=== PATIENT | male | born 1955 | race African-American/Black ===

== ENCOUNTER 2016-12-26 07:55 | Day surgery (SDC) ==
[2016-12-26] MEDS: LIDOCAINE 1% 20 ML MDV ID ONE (08:45)
[2016-12-26] MEDS ORDERED: DIPRIVAN 20 ML VIAL IVP ONE (10:08)
[2016-12-26] MEDS ORDERED: VERSED ONE (10:08)
[2016-12-26 11:42] VITALS: BP 138/90; TEMP 98
--- NOTE | 2016-12-26 15:17 | OP ---
PROCEDURE: COLONOSCOPY TO THE CECUM WITH SNARE POLYPECTOMY. ENDOSCOPIST: Tracy JUAREZ M.D. INDICATION: SCREENING. NO PREVIOUS COLONOSCOPY. INSTRUMENT: [id number]. MEDICATION: PER ANESTHESIA. PROCEDURE: The patient was positioned for colonoscopy. The digital rectal exam was negative. The colonoscope was inserted through the anus and advanced to the cecum. The cecum was identified using the ileocecal valve and the appendiceal orifice as landmarks. The scope was slowly withdrawn through an adequately prepped colon. A small polyp at 60cm removed using snare cautery. A second poly at 50cm removed using snare cautery. No other abnormalities were noted. Diverticuli are seen in the left colon. Retroflex exam is notable for external hemorrhoids. The patient tolerated the procedure without immediate complication. Withdraw time 12 minutes. PLAN: 1. Suggest repeat colonoscopy in 5 years. CC: Dr. Roberto ABRAHAM
== END 2016-12-26 11:57 | disposition home or self-care (01) ==
LOC: SURG 07:55
PROVIDERS: ATTEND Internal Medicine Gastroenterology
DX: Z12.11 Encounter for screening for malignant neoplasm of colon (principal); D12.4 Benign neoplasm of descending colon; K57.30 Diverticulosis of large intestine without perforation or abscess without bleeding; K64.4 Residual hemorrhoidal skin tags

== ENCOUNTER 2017-05-03 08:25 | Outpatient (CLI) ==
--- NOTE | 2017-05-03 09:42 | US ---
EXAM: Renal ultrasound HISTORY: Decreased GFR COMPARISON: None TECHNIQUE: Sonographic evaluation of the kidneys was performed with limited Doppler evaluation. FINDINGS: The right kidney measures 10.6 x 4.4 x 3.9 cm with renal cortical thickness of 0.7 cm. Th ere is normal echogenicity and color Doppler flow. No stone or hydronephrosis is identified. The left kidney measures 9.1 x 5.1 x 4.0 cm with renal cortical thickness of 1.2 cm. There is normal echogenicity and color Doppler flow. No stone or hydronephrosis is identified. Limited evaluation of the urinary bladder demonstrates a questionable diverticulum measuring 0.7 x 0. 4 cm. IMPRESSION: 1. No sonographic abnormality of the kidneys to account for patient's symptoms. 2. Small questionable bladder diverticulum.
== END 2017-05-03 08:26 | disposition home or self-care (01) ==
LOC: RAD 08:25
PROVIDERS: ATTEND Family Medicine
DX: R94.4 Abnormal results of kidney function studies (principal)
CPT/HCPCS: 76770

== ENCOUNTER 2017-06-12 10:20 | Emergency (ER) ==
[2017-06-12 10:26] VITALS: BP 143/98; TEMP 97.4; BMI 26.3
--- NOTE | 2017-06-12 10:46 | ED.PDOC ---
General ED Provider: Dr. TALA BETANCOURT Chief Complaint: Rash Stated Complaint: RASH Time Seen by Physician: 10:20 Mode of Arrival: Walk-In Information Source: Patient Exam Limitations: No limitations Primary Care Provider: ARVIND ROBLERO Nursing and Triage Documentation Reviewed and Agree: Yes Reviewed sepsis parameters & appropriate labs ordered?: Yes (SEE PHOTOS) System Inflammatory Response Syndrome: Not Applicable Sepsis Protocol: For patient's 13 years and over: Temp is 96.8 and below OR 101 and greater Pulse >90 BPM Resp >20/minute Acutely Altered Mental Status Are patient's symptoms suggestive of a new infection, such as: -Pneumonia -Skin, Soft Tissue -Endocarditis -UTI -Bone, Joint Infection -Implantable Device -Acute Abdominal Infection -Wound Infection -Meningitis -Blood Stream Catheter Infection -Unknown System Inflammatory Response Syndrome: Not Applicable Skin Complaint Exam - Skin Rash/Itching Complaint/Exam Onset/Duration: 1 DAY Symptoms Are: Still present Initial Severity: Mild Current Severity: Mild Potential Exposures: Reports: Unknown Aggravating: Reports: None Alleviating: Reports: None Associated Signs and Symptoms: Denies: Difficulty breathing, Fever, Chills Related History: Similar episode Review of Systems - Review Of Systems Constitutional: Reports: No symptoms Eyes: Reports: No symptoms Ears, Nose, Mouth, Throat: Reports: No symptoms Respiratory: Reports: No symptoms Cardiac: Reports: No symptoms GI: Reports: No symptoms : Reports: No symptoms Musculoskeletal: Reports: No symptoms Skin: Reports: Rash Neurological: Reports: No symptoms Endocrine: Reports: No symptoms Hematologic/Lymphatic: Reports: No symptoms All Other Systems: Reviewed and Negative Past Medical History - Past Medical History Previously Healthy: Yes Endocrine: Reports: None Cardiovascular: Reports: None Respiratory: Reports: None Hematological: Reports: None Gastrointestinal: Reports: None Genitourinary: Reports: None Neuro/Psych: Reports: None Musculoskeletal: Reports: None Cancer: Reports: None - Surgical History General Surgical History: Reports: None - Family History Family History: Reports: None - Social History Smoking Status: Former smoker Hx Substance Use: No Alcohol Screening: None - Immunizations Tetanus Shot up to Date: No Physical Exam - Physical Exam Appearance: Well-appearing, No pain distress, Well-nourished Eyes: ZOE, EOMI, Conjunctiva clear ENT: Ears normal, Nose normal, Oropharynx normal Respiratory: Airway patent, Breath sounds clear, Breath sounds equal, Respirations nonlabored Cardiovascular: RRR, Pulses normal, No rub, No murmur GI/: Soft, Nontender, No masses, Bowel sounds normal, No Organomegaly Musculoskeletal: Normal strength, ROM intact, No edema, No calf tenderness Skin: Warm, Dry (PAPULAR RASH FACE ARMS , BACK ) Neurological: Sensation intact, Motor intact, Reflexes intact, Cranial nerves intact, Alert, Oriented Psychiatric: Affect appropriate, Mood appropriate Critical Care Note - Critical Care Note Total Time (mins): 0 Course - Course Vital Signs: Temp Pulse Resp BP Pulse Ox 06/12/17 10:20 97.4 F L 74 18 143/98 H 100 Departure - Departure Time of Disposition: 10:46 (SEEN AT ALL TIMES WITH NURSE HOOK) Disposition: HOME SELF-CARE Discharge Problem: Pruritic rash Instructions: Acute Rash (ED) Condition: Good Pt referred to PMD for follow-up: Yes IPMP verified?: No Additional Instructions: Please call your Family Physician as soon as possible to schedule a follow-up appointment. Allergies/Adverse Reactions: Allergies codeine Adverse Reaction (Verified 12/26/16 08:42) Home Medications: Ambulatory Orders Alprazolam [Xanax] 0.5 mg PO BID 12/26/16 Aspirin [Lo-Dose Aspirin EC] 81 mg PO DAILY 12/26/16 Clopidogrel Bisulfate [Plavix] 75 mg PO DAILY 12/26/16 Gabapentin [Neurontin] 300 mg PO TID 12/26/16 Hydrocodone Bit/Acetaminophen [[place] 7.5-325] 1 tab PO BID PRN 12/26/16 Lisinopril 1.25 mg PO BID 12/26/16 Metoprolol Tartrate [Lopressor] 12.5 mg PO DAILY 12/26/16 Pravastatin Sodium 80 mg PO DAILY 12/26/16
[2017-06-12] MEDS ORDERED: DECADRON 4 MG/ML SDV IM STA (10:47)
== END 2017-06-12 10:52 | disposition home or self-care (01) ==
LOC: ED 10:20
DX: R21 Rash and other nonspecific skin eruption (principal); L29.9 Pruritus, unspecified
CPT/HCPCS: 96372; 99282

== ENCOUNTER 2017-11-15 09:38 | Outpatient (CLI) | END 2017-11-15 09:39 | disposition home or self-care (01) | LOC: RHC-LAB 09:38 | PROVIDERS: ATTEND Emergency Medicine | DX: I25.118 Atherosclerotic heart disease of native coronary artery with other forms of angina pectoris (principal); I10 Essential (primary) hypertension; E78.5 Hyperlipidemia, unspecified; Z12.5 Encounter for screening for malignant neoplasm of prostate | CPT/HCPCS: 36415; 80053; 80061; 84443; 85025 ==

== ENCOUNTER 2017-12-04 09:47 | Observation (INO) ==
[2017-12-04 10:29] VITALS: BMI 25.8
[2017-12-04] MEDS ORDERED: ACETAMINOPHEN PO PRN (12:30)
[2017-12-04] MEDS ORDERED: HYDROCODONE BIT PO PRN (12:30)
[2017-12-04] MEDS ORDERED: NON-FORMULARY MEDICATION (Alprazolam [Xanax] 0.5 MG) PO PRN (12:30)
[2017-12-04] MEDS ORDERED: NON-FORMULARY MEDICATION (Nitroglycerin [Nitroglycerin] 0.4 MG) SL PRN (12:30)
[2017-12-04] MEDS ORDERED: TYLENOL PO PRN (12:38)
[2017-12-04] MEDS ORDERED: XANAX PO PRN (12:41)
[2017-12-04] MEDS ORDERED: NORCO 7.5-325 PO PRN (12:42)
[2017-12-04] MEDS ORDERED: NITROSTAT SL PRN (12:42)
[2017-12-04] MEDS: SODIUM CHLORIDE 1,000 ML IV SCH (14:03)
[2017-12-04] MEDS: NEURONTIN PO SCH ×2 (14:33→21:57)
[2017-12-04] MEDS ORDERED: NON-FORMULARY MEDICATION (Gabapentin [Neurontin] 300 MG) PO SCH (15:00)
--- NOTE | 2017-12-04 15:05 | US ---
EXAM: Bilateral carotid artery Doppler History: Dizziness and facial numbness. Technique: Multiple sonographic images through the bilateral internal carotid arteries were obtained . Color duplex Doppler was used to interrogate vascular flow. Findings: The right ICA peak systolic velocity is within normal limits measuring 0.7 meters per second. The ri ght ICA/cca PSV ratio is normal at 0.80. The right vertebral artery is patent and demonstrates anteg rade flow. Lorenzo scale images demonstrate mild to moderate plaque buildup within the right internal c arotid artery. The left ICA peak systolic velocity is within normal limits measuring 0.5 meters per second. The lef t ICA/cca PSV ratio is normal at 0.70. The left vertebral artery is patent and demonstrates antegrad e flow. Lorenzo scale images demonstrate mild to moderate plaque buildup within the left internal carot id artery. Impression: No significant hemodynamic stenosis of the bilateral internal carotid arteries
[2017-12-04] MEDS ORDERED: PRAVACHOL PO SCH (21:00)
[2017-12-04] MEDS ORDERED: NON-FORMULARY MEDICATION (Pravastatin Sodium [Pravastatin Sodium] 80 MG) PO SCH (21:00)
[2017-12-04] MEDS: LOPRESSOR PO SCH (21:57)
--- NOTE | 2017-12-04 23:44 | MRI ---
EXAM: Brain MRI without contrast. HISTORY: Dizziness and facial numbness. COMPARISON: None. TECHNIQUE: Multiplanar, multisequence MR images were acquired of the brain without contrast. FINDINGS: The midline structures are central and the craniocervical junction is unremarkable. The v entricles and sulci are normal in size and configuration. There are no abnormal extra-axial fluid co llections. The brain parenchyma has no diffusion restriction to suggest acute hypoperfusion or infarction. Ther e is a small focus of faint curvilinear bright B 1000 signal without T2 signal abnormality along the lateral left frontal lobe which is considered artifactual. There is bifrontal periventricular T2 hyp erintensity and small T2 hyperintensities are present in the supratentorial white matter compatible w ith minor leukomalacia. There is no abnormal dark gradient echo signal. The corpus callosum is norm al. The pituitary gland is smal with concavity of the posterior superior gland consistent with a par tial empty sella. There are no intraorbital masses. Paranasal sinuses, middle ears and mastoids are clear. Flow voids are present in the major intracranial arteries and dural venous sinuses. IMPRESSION: 1. No intracranial mass, hemorrhage or acute cerebral infarct. 2. Minor leukomalacia likely due to chronic ischemic small vessel disease. 3. Partial empty sella.
[2017-12-05] MEDS: SODIUM CHLORIDE 1,000 ML IV SCH (03:38)
[2017-12-05] MEDS ORDERED: ASPIRIN EC PO SCH (08:00)
[2017-12-05] MEDS: NEURONTIN PO SCH (08:21)
[2017-12-05] MEDS: LOPRESSOR PO SCH (08:21)
[2017-12-05] MEDS ORDERED: PLAVIX PO SCH (09:00)
[2017-12-05] MEDS ORDERED: NON-FORMULARY MEDICATION (Clopidogrel Bisulfate [Plavix] 75 MG) PO SCH (09:00)
[2017-12-05] MEDS ORDERED: ZESTRIL PO SCH (09:00)
[2017-12-05] MEDS ORDERED: NON-FORMULARY MEDICATION (Lisinopril [Lisinopril] 10 MG) PO SCH (09:00)
[2017-12-05] MEDS ORDERED: ASPIRIN 81 MG PO SCH (09:00)
[2017-12-05 09:48] VITALS: BP 122/74; TEMP 98.7
--- NOTE | 2017-12-05 17:24 | PCM.HOSP ---
- Observation Care Discharge [id number] OBS Care Discharge (69925): 12/05 - Initial Observation Care [id number] High Complexity 70 Minutes ([id number]): 12/04
--- NOTE | 2017-12-06 11:29 | DS ---
DATE OF SERVICE: 12/05/17 FINAL DIAGNOSIS: 1. Left facial numbness 2. Dizziness 3. Recent TIA 4. History of IM, 2010 5. Dyslipidemia 6. Neuropathy 7. Heart stent times three 8. Heart cath times three 9. Anxiety DISCHARGE INSTRUCTIONS: Discharge the patient home. Followup in the [facility] within 5-7 days[facility] within one month. Continue the rest of the home medications. MEDICATIONS AT DISCHARGE: Xanax Aspirin Plavix Neurontin Narco Lisinopril Lopressor Nitroglycerin Pravastatin NEW PRESCRIPTIONS: None DIET INSTRUCTIONS: Cardiac and healthy diet ACTIVITY: As tolerated DISEASE SPECIFIC EDUCATION: TIA Risk of stroke been discussed and verbalized understanding. HOSPITAL COURSE: Raghu Robertson 62 year old male who has been having the left sided facial numbness on and off and been having dizziness. Blood pressure been elevated. Given history of coronary artery disease, dyslipidemia risk of the stroke was high the patient was admitted to the hospital. MRI of the brain done which did show chronic ischemic changes, mild and carotid ultrasound was not significant. While patient was in the hospital blood pressure been stable and did not have anymore episodes. Dizziness was resolved. The patient was already on the Plavix and no new additional medications were added at that time. The patient being made an appointment with Neurologist as outpatient. All the findings and risk of stroke been discussed to the patient and the patient's and verbalized understanding. TIME SPENT: MORE THAN 65 MINUTES MTDD
== END 2017-12-05 12:10 | disposition home or self-care (01) ==
LOC: MEDSURG A 09:47
PROVIDERS: ADMIT Emergency Medicine; ATTEND Emergency Medicine
DX: R20.0 Anesthesia of skin (principal); K13.0 Diseases of lips; E78.5 Hyperlipidemia, unspecified; I10 Essential (primary) hypertension; F41.1 Generalized anxiety disorder; G62.9 Polyneuropathy, unspecified; R42 Dizziness and giddiness
CPT/HCPCS: 36415; 80053; 82550; 82553; 84484; 85025; 93005; 93010

== ENCOUNTER 2018-01-23 18:12 | Outpatient (CLI) | END 2018-01-23 18:13 | disposition home or self-care (01) | LOC: RHC-LAB 18:12 | PROVIDERS: ATTEND Nurse Practitioner Family | DX: Z51.81 Encounter for therapeutic drug level monitoring (principal); Z79.899 Other long term (current) drug therapy | CPT/HCPCS: 80306 ==

== ENCOUNTER 2018-05-10 12:58 | Outpatient (CLI) ==
--- NOTE | 2018-05-10 14:25 | DI ---
EXAM: Lumbar spine five views, including oblique views HISTORY: Back pain COMPARISON: None TECHNIQUE: Five views lumbar spine were performed including oblique views FINDINGS: Sacroiliac joints intact. Sacral arcuate intact. Vertebral bodies normal in height. No fracture. Multilevel marginal osteophyte formation. Mild multilevel intervertebral disc space narro wing. Multilevel facet arthrosis that is greatest in the lower spine. 2 mm anterolisthesis of L3 on L4. Atherosclerotic vascular calcification. IMPRESSION: Chronic discogenic degenerative disease and facet arthrosis.
--- NOTE | 2018-05-10 16:12 | MRI ---
EXAM: MRI lumbar spine without IV contrast. DATE: 10 May 2018. HISTORY: Lumbar disc disease. TECHNIQUE: Sagittal and axial T1W and T2W sequences of the lumbar spine along with sagittal IR and c oronal T2W sequences were obtained using 1.2 Amy magnet. No IV contrast. COMPARISON: LS spine series 10 May 2018. MRI lumbar spine 03/20/2015. FINDINGS: There are five [id number] lumbar vertebra. There is slight (2 degrees) leftward curv ature of the lumbar spine. A 1.5 mm anterior subluxation of L3 relative to L4 and eight 2 mm retroli sthesis of L5 relative to S1 are observed. No other subluxation, acute fracture, osseous malignancy, or pars interarticularis defect is demonstrated. Lumbar vertebra are normal in height. Mild disc s pace narrowing is detected at L3-4, L4-5, and L5-S7. No acute sacral fracture or stress reaction is evident. SI joints are unremarkable. Small anterior bridging osteophytes are present at the left SI joint. Conus medullaris terminates at T12-L1. Visible spinal cord is normal. No retroperitoneal lymphadenopathy, paraspinal mass, or aortic aneurysm is detected. Atherosclerotic plaques are scattered in the aortic wall. Paraspinal musculature is symmetric bilaterally. Visible portions of the liver, spleen, adrenal glands and kidneys reveal no abnormality. No bowel obstructi on or malignancy is evident. No pancreatic neoplasm is identified. Pancreatic duct appears to be up per normal versus mildly prominent in the head, neck, body. No CBD enlargement. Segmental analysis: T11-12: Sagittal images reveal small posterior disc bulge which touches the cord anteriorly but does not appear to cause central stenosis. Each foramen is moderate to markedly narrowed due to facet di sease. T12-L1: No disc protrusion or central stenosis. Mild/moderate facet arthropathy causes mild/moderat e left foraminal narrowing. L1-2: Minor posterior to foraminal disc bulge and minor facet arthropathy cause mild right and moder ate left foraminal stenoses. No central canal stenosis. L2-3: Small concentric disc bulge, mild right facet arthropathy, moderate left facet arthropathy, an d mild ligamentum flavum hypertrophy cause mild central canal stenosis, mild right foraminal stenosis , and moderate/marked left foraminal narrowing. The thickened nerve root versus fibrotic strain vers us artifact is seen within the left anterolateral aspect of the thecal sac. Small left facet effusio n is present. L3-4: Minor anterolisthesis of L3, pseudodisc bulge, moderate bilateral facet arthropathy and modera te ligamentum flavum hypertrophy cause moderate central canal stenosis, moderate/marked narrowing at the opening to the right foramen and moderate left foraminal stenosis. Each L3 nerve root contacts d isc bulge near the lateral margin of the foramen. L4-5: Minor/small concentric disc bulge, mild right facet arthropathy, marked left facet arthropathy , and mild/moderate ligamentum flavum hypertrophy cause mild central canal stenosis and moderate/lilliana ed narrowing at the opening to each foramen. L5-S1: Minor posterior disc bulge, small left posterolateral spondylotic ridge at the L5 inferior en dplate, and minor facet arthropathy cause moderate bilateral foraminal stenoses. No central canal st enosis. IMPRESSIONS: 1. Lumbar spine minor leftward curvature, minor spondylosis, multilevel facet arthropathy (especiall y L3-4), minor L3-4 subluxation, and multilevel DDD. 2. Multilevel lumbar foraminal stenoses as described. Each L3 nerve root contacts the disc bulge ne ar the foramen, and could be sources for pain/radiculopathy. 3. Multilevel central canal stenoses ( L2-3: Mild. L3-4: Moderate. L4-5: Mild). 4. Mild pancreatic duct prominence of uncertain etiology. If symptoms or clinical history warrant f urther evaluation, a dedicated CT scan or MRI of the pancreas without/with IV contrast would be appro priate. 5. Mild abdominal aortic atherosclerosis.
== END 2018-05-10 12:59 | disposition home or self-care (01) ==
LOC: RAD 12:58
PROVIDERS: ATTEND Pain Medicine Interventional Pain Medicine
DX: M51.16 Intervertebral disc disorders with radiculopathy, lumbar region (principal); M51.17 Intervertebral disc disorders with radiculopathy, lumbosacral region; M48.061 Spinal stenosis, lumbar region without neurogenic claudication; M48.07 Spinal stenosis, lumbosacral region; M51.36 Other intervertebral disc degeneration, lumbar region; M51.37 Other intervertebral disc degeneration, lumbosacral region; M47.816 Spondylosis without myelopathy or radiculopathy, lumbar region; M47.817 Spondylosis without myelopathy or radiculopathy, lumbosacral region

== ENCOUNTER 2018-06-18 03:30 | Observation (INO) ==
[2018-06-18 03:35] VITALS: BMI 26.8
[2018-06-18] MEDS ORDERED: ROCEPHIN 1 GM in SODIUM CHLORIDE 50 ML IV STA (03:47)
[2018-06-18] MEDS ORDERED: THORAZINE IM STA ×3 (03:49→21:37)
[2018-06-18] MEDS ORDERED: ROCEPHIN ONE ×2 (03:58→21:37)
--- NOTE | 2018-06-18 05:26 | CT ---
EXAM: CT chest without intravenous contrast 06/18/2018. Sagittal and coronal reformatted images obt ained HISTORY: Cough and fever COMPARISON: None. FINDINGS: The heart size appears within normal limits. No pericardial effusion. Atherosclerotic va scular disease with coronary artery calcifications. Interstitial prominence within the dependent aspect of both lower lobes. This may represent areas of atelectasis or pneumonitis. This is more prominent on the right. No pulmonary consolidation. No pleural effusion or pneumothorax. Limited views of the upper abdomen show no gross abnormality. IMPRESSION: Basilar interstitial opacities may represent atelectasis or pneumonitis. No pulmonary c onsolidation, effusion or pneumothorax.
--- NOTE | 2018-06-18 05:32 | CT ---
EXAM: CT abdomen pelvis without intravenous contrast 06/18/2018. Sagittal and coronal reformatted i mages obtained HISTORY: Abdominal pain and fever COMPARISON: None. FINDINGS: Bibasilar atelectasis and/or pneumonitis. The liver and gallbladder show no acute abnorma lity. The adrenal glands and kidneys show no acute abnormality. No hydronephrosis. The spleen and pancreas show no acute abnormality. There is no bowel obstruction. Normal appendix. Unremarkable urinary bladder. No free air or free fluid. Diverticulosis without diverticulitis. IMPRESSION: 1. Bibasilar atelectasis and/or pneumonitis. 2. No urinary or bowel obstruction and normal appendix. 3. Diverticulosis without diverticulitis 4. No acute inflammatory process identified within the abdomen or pelvis within the limitation of a noncontrast enhanced examination.
--- NOTE | 2018-06-18 05:49 | ED.PDOC ---
General ED Provider: Dr. JACKI GORDON-ER Chief Complaint: Shortness of Air Stated Complaint: radha had fever and cough Time Seen by Physician: 03:40 Mode of Arrival: Walk-In Information Source: Patient Exam Limitations: No limitations Primary Care Provider: PRASHANT JOSE Nursing and Triage Documentation Reviewed and Agree: Yes Does patient meet sepsis criteria?: No System Inflammatory Response Syndrome: Not Applicable Sepsis Protocol: For patient's 13 years and over: Temp is 96.8 and below OR 101 and greater Pulse >90 BPM Resp >20/minute Acutely Altered Mental Status Are patient's symptoms suggestive of a new infection, such as: -Pneumonia -Skin, Soft Tissue -Endocarditis -UTI -Bone, Joint Infection -Implantable Device -Acute Abdominal Infection -Wound Infection -Meningitis -Blood Stream Catheter Infection -Unknown Respiratory Complaint Exam - Respiratory Complaint/Exam Onset/Duration: 2 days Symptoms Are: Still present Timing: Intermittent Initial Severity: Mild Current Severity: Moderate Location: Chest Character: Reports: Productive cough Aggravating: Reports: URI Alleviating: Reports: None Associated Signs and Symptoms: Reports: Dyspnea, Fever, Chills, URI, Nasal congestion. Denies: Rapid breathing, Chest pain History of Healthcare-Acquired Pneumonia: No Pseudomonas Risk Factors: Reports: None Tuberculosis Risk Factors: Reports: None Status Asthmaticus Risk Factors: Reports: None Recent Stress Test: No Recent Echo/LV Function: No Current Antibiotic Use: No Current Asthma Medication Use: No Respiratory Distress: None Inadequate Respiratory Effort: No Dysphagia Present: No Stridor Present: No JVD Present: No Accessory Muscle Use: No Retractions: Not Present Diminished Breath Sounds: No Sinus Tenderness: None Grunting Respirations: No Kussmaul Respirations: No Differential Diagnoses: Pneumonia, URI, Influenza Non-Traumatic Chest Pain Syncope: EKG Performed Review of Systems - Review Of Systems Constitutional: Reports: Chills, Fever Eyes: Reports: No symptoms Ears, Nose, Mouth, Throat: Reports: No symptoms Respiratory: Reports: Cough, Short of air Cardiac: Reports: No symptoms GI: Reports: No symptoms : Reports: No symptoms Musculoskeletal: Reports: No symptoms Skin: Reports: No symptoms Neurological: Reports: No symptoms Endocrine: Reports: No symptoms Hematologic/Lymphatic: Reports: No symptoms All Other Systems: Reviewed and Negative Past Medical History - Past Medical History Previously Healthy: Yes Endocrine: Reports: None Cardiovascular: Reports: None Respiratory: Reports: None Hematological: Reports: None Gastrointestinal: Reports: None Genitourinary: Reports: None Neuro/Psych: Reports: None Musculoskeletal: Reports: None Cancer: Reports: None - Surgical History General Surgical History: Reports: None - Family History Family History: Reports: None - Social History Smoking Status: Former smoker Hx Substance Use: No Alcohol Screening: None - Immunizations Tetanus Shot up to Date: No Physical Exam - Physical Exam Appearance: Well-appearing, No pain distress, Well-nourished Ill-appearing: Mild Eyes: ZOE, EOMI, Conjunctiva clear ENT: Ears normal, Nose normal, Oropharynx normal Neck: Supple Respiratory: Crackles, Rhonchi Cardiovascular: RRR, Pulses normal, No rub, No murmur GI/: Soft, Nontender, No masses, Bowel sounds normal, No Organomegaly Musculoskeletal: Normal strength, ROM intact, No edema, No calf tenderness Skin: Warm, Dry, Normal color Neurological: Sensation intact, Motor intact, Reflexes intact, Cranial nerves intact, Alert, Oriented Psychiatric: Affect appropriate, Mood appropriate Interpretation - Radiology Interpretation Radiology Interpretation By: Radiologist Radiology Results: Positive Exam Interpreted: CT Scan - EKG Interpretation Time of EKG #1: 05:49 Rate: Tachy Rhythm: Sinus Ectopy: None [place]: NL ST Segment: Normal Interpretation: sinus tachy Physician Notification - Case Discussed Physician Notified: dr tran Time of Notification: 05:50 Critical Care Note - Critical Care Note Total Time (mins): 0 Course - Course Hematology/Chemistry: 06/18/18 04:10 06/18/18 04:10 Orders, Labs, Meds: Lab Review 06/18/18 06/18/18 06/18/18 03:46 03:55 03:55 WBC RBC Hgb Hct MCV MCH MCHC RDW Coeff of Erin Plt Count Immature Gran % (Auto) Neut % (Auto) Lymph % (Auto) Shannon % (Auto) Eos % (Auto) Baso % (Auto) Immature Gran # (Auto) Neut # (Auto) Lymph # (Auto) Shannon # (Auto) Eos # (Auto) Baso # (Auto) Puncture Site Rb O2 Saturation 94.0 L ABG pH 7.461 H ABG pCO2 31.9 L ABG pO2 64.0 L ABG HCO3 22.7 ABG Total CO2 24 ABG Base Excess -1 Chintan Test + FiO2 % 21.0 Sodium Potassium Chloride Carbon Dioxide Anion Gap BUN Creatinine Estimated GFR (MDRD) BUN/Creatinine Ratio Glucose Lactic Acid Calcium Total Bilirubin AST ALT Alkaline Phosphatase Total Protein Albumin Globulin Albumin/Globulin Ratio Procalcitonin Urine Color Yellow Urine Clarity Clear Urine pH 8.0 Ur Specific Dewitt 1.015 Urine Protein Trace Urine Glucose (UA) Negative Urine Ketones Negative Urine Blood Negative Urine Nitrite Negative Urine Bilirubin Negative Urine Urobilinogen 2.0 Ur Leukocyte Esterase Negative Urine Microscopic RBC 0-2 Ur Squamous Epith Cells 0-2 Urine Mucus Trace Influ A Molecular Assay Positive by naat H Influ B Molecular Assay Negative by naat 06/18/18 06/18/18 06/18/18 04:10 04:10 04:10 WBC 11.54 H RBC 4.41 L Hgb 13.5 L Hct 39.8 L MCV 90.2 MCH 30.6 MCHC 33.9 RDW Coeff of Erin 13.5 Plt Count 189 Immature Gran % (Auto) 0.3 Neut % (Auto) 86.3 Lymph % (Auto) 6.2 L Shannon % (Auto) 6.8 Eos % (Auto) 0.2 Baso % (Auto) 0.2 Immature Gran # (Auto) 0.0 Neut # (Auto) 10.0 H Lymph # (Auto) 0.7 Shannon # (Auto) 0.8 Eos # (Auto) 0.0 Baso # (Auto) 0.0 Puncture Site O2 Saturation ABG pH ABG pCO2 ABG pO2 ABG HCO3 ABG Total CO2 ABG Base Excess Chintan Test FiO2 % Sodium 135.8 Potassium 3.90 Chloride 100.9 Carbon Dioxide 24.1 Anion Gap 14.70 BUN 10.6 Creatinine 1.10 Estimated GFR (MDRD) 82.00 BUN/Creatinine Ratio 9.63 Glucose 156.0 H Lactic Acid 1.61 Calcium 9.49 Total Bilirubin 0.64 AST 36.7 ALT 34.8 Alkaline Phosphatase 59.8 Total Protein 7.90 Albumin 4.52 Globulin 3.38 Albumin/Globulin Ratio 1.33 Procalcitonin Urine Color Urine Clarity Urine pH Ur Specific Dewitt Urine Protein Urine Glucose (UA) Urine Ketones Urine Blood Urine Nitrite Urine Bilirubin Urine Urobilinogen Ur Leukocyte Esterase Urine Microscopic RBC Ur Squamous Epith Cells Urine Mucus Influ A Molecular Assay Influ B Molecular Assay 06/18/18 04:10 WBC RBC Hgb Hct MCV MCH MCHC RDW Coeff of Erin Plt Count Immature Gran % (Auto) Neut % (Auto) Lymph % (Auto) Shannon % (Auto) Eos % (Auto) Baso % (Auto) Immature Gran # (Auto) Neut # (Auto) Lymph # (Auto) Shannon # (Auto) Eos # (Auto) Baso # (Auto) Puncture Site O2 Saturation ABG pH ABG pCO2 ABG pO2 ABG HCO3 ABG Total CO2 ABG Base Excess Chintan Test FiO2 % Sodium Potassium Chloride Carbon Dioxide Anion Gap BUN Creatinine Estimated GFR (MDRD) BUN/Creatinine Ratio Glucose Lactic Acid Calcium Total Bilirubin AST ALT Alkaline Phosphatase Total Protein Albumin Globulin Albumin/Globulin Ratio Procalcitonin 0.05 Urine Color Urine Clarity Urine pH Ur Specific Dewitt Urine Protein Urine Glucose (UA) Urine Ketones Urine Blood Urine Nitrite Urine Bilirubin Urine Urobilinogen Ur Leukocyte Esterase Urine Microscopic RBC Ur Squamous Epith Cells Urine Mucus Influ A Molecular Assay Influ B Molecular Assay Orders Category Date Time Status ABG DRAW REQUEST Stat CARDIO 06/18/18 03:46 Completed EKG-(ED ONLY) Stat CARDIO 06/18/18 03:46 Completed ED SCHOOL GUIDANCE COUNSELOR APPLIED .ONCE EMERGENCY 06/18/18 03:46 Active IV [ED IV/MEDIPORT/POWERPORT] .ONCE EMERGENCY 06/18/18 03:47 Active ABG Stat LAB 06/18/18 03:46 Completed BLOOD CULTURE (ED ONLY) Stat LAB 06/18/18 04:10 Received CBC W/ AUTO DIFF Stat LAB 06/18/18 04:10 Completed COMPREHENSIVE METABOLIC PANEL Stat LAB 06/18/18 04:10 Completed FLU A/B MOLECULAR Stat LAB 06/18/18 03:55 Completed LACTIC ACID Stat LAB 06/18/18 04:10 Completed MOLECULAR GROUP A STREP Stat LAB 06/18/18 03:55 Completed PROCALCITONIN Stat LAB 06/18/18 04:10 Completed URINALYSIS C & S IF INDICATED Stat LAB 06/18/18 03:55 Completed 0.9 % Sodium Chloride [Saline Flush] MEDS 06/18/18 03:47 Ordered 1 syr IVF PRN PRN Ceftriaxone Sodium [Rocephin] MEDS 06/18/18 03:58 Discontinued 1 gm .ROUTE .STK-MED ONE Ceftriaxone Sodium [Rocephin] 1 gm MEDS 06/18/18 03:47 Discontinued 0.9 % Sodium Chloride [Sodium Chloride] 50 ml IV ONCE Chlorpromazine HCl [Thorazine] MEDS 06/18/18 03:49 Discontinued 50 mg IM ONCE STA CT ABDOMEN/PELVIS WO CONTRAST Stat RADS 06/18/18 03:[address] CHEST W/O CONTRAST Stat RADS 06/18/18 03:48 Completed Medications Generic Name Dose Route Start Last Admin Trade Name Freq PRN Reason Stop Dose Admin Sodium Chloride 1 syr 06/18/18 03:47 Saline Flush IVF PRN PRN To flush IV Discontinued Medications Generic Name Dose Route Start Last Admin Trade Name Freq PRN Reason Stop Dose Admin Chlorpromazine HCl 50 mg 06/18/18 03:49 06/18/18 04:12 Thorazine IM 06/18/18 03:50 50 mg ONCE STA Administration Ceftriaxone Sodium 1 gm/ 50 mls @ 75 mls/hr 06/18/18 03:47 06/18/18 04:12 Sodium Chloride IV 06/18/18 04:26 75 mls/hr ONCE STA Administration Vital Signs: Temp Pulse Resp BP Pulse Ox 06/18/18 05:06 101.9 F H 115 H 20 155/86 H 97 06/18/18 03:30 102 F H 121 H 30 H 145/75 H 96 Departure - Departure Time of Disposition: 05:50 Disposition: ADMITTED INPATIENT Discharge Problem: Influenza A Pneumonia Qualifiers: Pneumonia type: due to unspecified organism Laterality: unspecified laterality Lung location: unspecified part of lung Qualified Code(s): J18.9 - Pneumonia, unspecified organism Instructions: Influenza (ED) Condition: Good Pt referred to PMD for follow-up: Yes IPMP verified?: No Allergies/Adverse Reactions: Allergies lisinopril Allergy (Mild, Verified 06/18/18 03:35) angioedema, cough Patient will notify drugstore codeine Adverse Reaction (Verified 06/18/18 03:35) Home Medications: Ambulatory Orders Aspirin [Lo-Dose Aspirin EC] 81 mg PO DAILY 12/26/16 Hydrocodone Bit/Acetaminophen [[place] 7.5-325] 1 tab PO TID PRN 12/26/16 Disposition Discussed With: Patient
[2018-06-18] MEDS ORDERED: TYLENOL PO PRN (05:52)
[2018-06-18] MEDS ORDERED: NORCO 7.5-325 PO PRN (05:56)
[2018-06-18] MEDS ORDERED: NITROSTAT SL PRN (05:56)
[2018-06-18] MEDS: DUONEB NEB SCH ×4 (06:09→23:25)
[2018-06-18] MEDS ORDERED: VANCOMYCIN 1.5 GM in SODIUM CHLORIDE 500 ML IV SCH (09:00)
[2018-06-18] MEDS ORDERED: VANCOMYCIN 1 GM in SODIUM CHLORIDE 250 ML IV SCH (09:00)
[2018-06-18] MEDS ORDERED: NON-FORMULARY MEDICATION (Pravastatin Sodium [Pravastatin Sodium] 80 MG) PO SCH (09:00)
[2018-06-18] MEDS: SODIUM CHLORIDE 1,000 ML IV SCH ×2 (09:21→21:34)
[2018-06-18] MEDS: ASPIRIN EC PO SCH (09:45)
[2018-06-18] MEDS: NEURONTIN PO SCH ×3 (09:46→21:31)
[2018-06-18] MEDS: PLAVIX PO SCH (09:46)
[2018-06-18] MEDS: PRAVACHOL PO SCH (09:46)
[2018-06-18] MEDS: LOVENOX SUBCUT SCH (09:53)
[2018-06-18] MEDS: LOPRESSOR PO SCH ×2 (09:53→21:31)
[2018-06-18] MEDS ORDERED: TAMIFLU ONE (09:59)
[2018-06-18] MEDS: TAMIFLU PO SCH ×2 (10:01→21:31)
[2018-06-18] MEDS ORDERED: INVANZ ONE (18:27)
[2018-06-18] MEDS: INVANZ 1 GM in SODIUM CHLORIDE 50 ML IV SCH (18:31)
[2018-06-18] MEDS ORDERED: ROCEPHIN 2 GM in SODIUM CHLORIDE 50 ML IV SCH (21:00)
[2018-06-18] MEDS ORDERED: ROCEPHIN 1 GM in SODIUM CHLORIDE 50 ML IV SCH (21:00)
[2018-06-18] MEDS: XANAX PO PRN (21:31)
[2018-06-18] MEDS: NORVASC PO SCH (21:31)
[2018-06-18] MEDS ORDERED: TYLENOL PO STA (21:36)
[2018-06-18] MEDS ORDERED: BENADRYL PO PRN (21:43)
[2018-06-19] MEDS: SODIUM CHLORIDE 1,000 ML IV SCH ×2 (01:20→14:37)
[2018-06-19] MEDS: DUONEB NEB SCH ×4 (04:30→23:00)
[2018-06-19] MEDS: INVANZ 1 GM in SODIUM CHLORIDE 50 ML IV SCH (08:24)
[2018-06-19] MEDS: PRAVACHOL PO SCH (08:24)
[2018-06-19] MEDS: PLAVIX PO SCH (08:24)
[2018-06-19] MEDS: LOPRESSOR PO SCH ×2 (08:25→20:45)
[2018-06-19] MEDS: ASPIRIN EC PO SCH (08:25)
[2018-06-19] MEDS: TAMIFLU PO SCH ×2 (08:25→20:45)
[2018-06-19] MEDS: NEURONTIN PO SCH ×3 (08:25→20:45)
[2018-06-19] MEDS: LOVENOX SUBCUT SCH (08:27)
[2018-06-19] MEDS ORDERED: TAMIFLU PO ONE (09:56)
[2018-06-19] MEDS: NORVASC PO SCH (20:45)
[2018-06-19] MEDS: ROCEPHIN 2 GM in SODIUM CHLORIDE 50 ML IV SCH (20:45)
[2018-06-19] MEDS: XANAX PO PRN (20:55)
[2018-06-20] MEDS: DUONEB NEB SCH ×4 (05:10→22:07)
[2018-06-20] MEDS: SODIUM CHLORIDE 1,000 ML IV SCH ×2 (05:13→19:45)
[2018-06-20] MEDS: PLAVIX PO SCH (08:06)
[2018-06-20] MEDS: PRAVACHOL PO SCH (08:06)
[2018-06-20] MEDS: LOVENOX SUBCUT SCH (08:07)
[2018-06-20] MEDS: LOPRESSOR PO SCH ×2 (08:07→21:33)
[2018-06-20] MEDS: ASPIRIN EC PO SCH (08:07)
[2018-06-20] MEDS: NEURONTIN PO SCH ×3 (08:07→21:33)
[2018-06-20] MEDS: TAMIFLU PO SCH ×2 (08:07→21:33)
[2018-06-20] MEDS: INVANZ 1 GM in SODIUM CHLORIDE 50 ML IV SCH (13:08)
[2018-06-20] MEDS: ROCEPHIN 2 GM in SODIUM CHLORIDE 50 ML IV SCH (21:29)
[2018-06-20] MEDS: NORVASC PO SCH (21:33)
[2018-06-20] MEDS: XANAX PO PRN (21:34)
[2018-06-21] MEDS: DUONEB NEB SCH ×2 (05:02→11:12)
[2018-06-21] MEDS: NEURONTIN PO SCH (08:02)
[2018-06-21] MEDS: PLAVIX PO SCH (08:03)
[2018-06-21] MEDS: PRAVACHOL PO SCH (08:03)
[2018-06-21] MEDS: ASPIRIN EC PO SCH (08:03)
[2018-06-21] MEDS: TAMIFLU PO SCH (08:03)
[2018-06-21] MEDS: LOVENOX SUBCUT SCH (08:04)
[2018-06-21] MEDS: LOPRESSOR PO SCH (08:04)
--- NOTE | 2018-06-21 08:35 | DI ---
EXAM: Two views of the chest. History: Cough, follow-up pneumonia Comparison: Chest CT 06/18/2018 Findings: Heart size is normal. No focal consolidation. No appreciable pleural fluid and no pneumo thorax. No acute osseous abnormalities. Impression: No acute cardiopulmonary process
[2018-06-21] MEDS: INVANZ 1 GM in SODIUM CHLORIDE 50 ML IV SCH (10:43)
[2018-06-21 13:35] VITALS: BP 112/74; TEMP 98.1
--- NOTE | 2018-08-01 11:08 | HP ---
DATE OF SERVICE: 06/18/18 CHIEF COMPLAINT: Shortness of breath, fever and cough. HISTORY OF PRESENT ILLNESS: The patient claimed that his problem began yesterday starting with hiccups followed by shortness of breath today. He also had a nonproductive cough. The patient did present to the emergency room and did walk in and was noted to have a temperature of 102 tympanic, pulse rate 121, respiratory rate 30, oxygen saturation 96% at room air and blood pressure 145/55. The patient's workup showed mild leukocytosis positive for Influenza A on nuclear amplification and chest CT showed bibasilar atelectasis/pneumonia and CAT of the abdomen and pelvis also showed the same and no acute intraabdominal processes. The patient was then admitted with bibasilar pneumonia/atelectasis as well as influenza A. PAST PERSONAL HISTORY: The patient had history of hypertension Myocardial infarction Stents put in 2010 as well as 2016 [place] 2010 History of prediabetes Stopped smoking in 2010 Colonoscopy 2017 FAMILY HISTORY: Sister has thyroid disease Father heart disease, history of alcoholism Mother no known hereditary disease. SOCIAL HISTORY: The patient is single. Stopped smoking in 2010. He is disabled and no next of kin listed. MEDICATIONS: Hydrocodone/APAP 7.5-325 one tablet three times a day as needed Aspirin 81mg daily Nitroglycerin 0.4mg sublingually times three and if not relieved go to ER Metoprolol Tartrate 25mg twice a day Plavix 75mg daily Alprazolam 0.5mg at bedtime Neurontin 300mg three times a day Pravastatin 80mg daily Amlodipine 5mg PO twice a day ALLERGIES: Lisinopril Codeine REVIEW OF SYSTEMS: CONSTITUTIONAL: The patient alert and febrile but no chills. No significant fatigue TIN POT OPERATOR: Denies any headaches or any ataxia, syncope or seizure disorder VISUAL: Denies any blurred vision, double vision or transient loss of vision. RESPIRATORY: The patient has hiccups as well as nonproductive cough. Shortness of breath. CARDIOVASCULAR: Denies any chest pain or chest tightness. GASTROINTESTINAL: Appetite is decreased but no vomiting or diarrhea. No abdominal pain. GENITOURINARY: No pain or frequency or urination. MUSCULOSKELETAL: The patient does have some muscle aches. ENDOCRINE: Negative. No polyuria or polydipsia. INTEGUMENT: Denies any rash or pruritus or subcutaneous ecchymosis. HEMATOLOGIC: No history of prolonged bleeding or spontaneous bleeding. PSYCHIATRIC: Affect is normal. PHYSICAL EXAMINATION: GENERAL: 63 year old male admitted to the hospital because of fever, shortness of breath and bibasilar atelectasis with moderate hypoxemia and positive influenza A. VITAL SIGNS: Temperature 102.0, pulse 121, blood pressure 145/75, respiratory rate 30, oxygen saturation 96% at room air. 6'2, 209 pounds. HEAD: Unremarkable. Scalp as no active dermatitis. FACE: Symmetrical and equal with no facial weakness and significant tenderness in the frontal and maxillary sinus area to palpation under pressure. EYES: Pupils equal/reactive to light. Conjunctivae not pale. Sclerae not icteric. About 3mm in size. MOUTH: Unremarkable THROAT: No inflammation, tumors or exudate. NECK: No masses. No bruit. No tenderness. No rigidity. CHEST: Essentially symmetrical and equal with good expansion. LUNGS: Breath sounds are heard in both sides with rales in both lung schafer. No expiratory wheezing. HEART: Audible and regular with good tones. No murmurs. Rate is slightly tachycardiac. The patient was examined on the floor. ABDOMEN: Soft with no remarkable tenderness. No guarding. No masses palpable. Bowel sounds are active. EXTERNAL GENITALIA: Not examined RECTAL: Not done LOWER EXTREMITIES: Symmetrical and equal with no tenderness in the calf muscles and no edema. Pedal pulses are presented but diminished volume UPPER EXTREMITIES: Symmetrical and equal. ASSESSMENT: 1. Acute viral infection, Influenza A 2. Bibasilar atelectasis/pneumonia most likely atelectasis 3. History of myocardial infarction 4. History of stent deployment 2011 and 2016 5. Chronic tobacco use and abuse, stopped 2010 6. History of hypertension TIME SPENT: GREATER THAN 65 MINUTES MTDD
--- NOTE | 2018-08-14 11:35 | DS ---
DATE OF SERVICE: 06/21/18 PATIENT IDENTIFICATION: 63-year-old male admitted to the hospital via the emergency room because of fever and chills the evening before. The patient also had hiccups that were persistent with nonproductive cough. He had some nausea. The patient was given Thorazine in the emergency room because of the hiccups 25 mg IM. The patient's pertinent physical finding is the fever and the rales on both lung schafer as well as tachycardia while in the emergency room. Chest CT showed bibasilar atelectasis/pneumonia and the CT scan of the abdomen and pelvis also showed the same with no acute intraabdominal processes. Initial CBC showed slight leukocytosis or mild leukocytosis 7,540, anemia. Arterial blood gases showed desaturation, p02 64, oxygen saturation 94, pH 7.461, pc02 31.9. Bicarbonate 22.7, total c02 24, FI02 21%. Blood sugar initially was 156. In the emergency room lactic acid normal 1.61, procalcitonin 0.05, urinalysis normal. Influenza A by nuclear amplification is positive, B negative. The patient was given Rocephin and Vancomycin in the emergency room. Also had a dose of Ertapenem. The patient was continued on Vancomycin 1 gm q.12hr increased to 1.5 gm q.12. The Rocephin was increased to 2 gm q.24hr. He also received Lovenox 40 mg subcutaneously. The patient's hiccups have stopped and the patient's appetite had improved. He also has received Tamiflu 75 mg twice a day. The patient's repeat CBC showed normal WBC and repeat procalcitonin on 06/20/18 nows shows less than 0.05. No blood tests on 06/20/18 except a procalcitonin. CBC on 06/21/18 showed WBC of 4, 650, RBC 4.12, hemoglobin 12.3, hematocrit 37.4. Monocyte 11, slightly elevated. Electrolytes normal. EGFR 85. Sugar 113. Liver enzymes normal as well as alkaline phosphatase. Protein and albumin normal. The patient had been afebrile beginning in the afternoon of 06/19/18 until discharge. The patient on discharge is alert, ambulatory with no weakness upper or lower extremities. Color is good and is not dyspneic or tachypneic. Temperature at 1:33 p.m. showed 98.1 orally, pulse 84, blood pressure 112/74, respiratory rate 18, oxygen saturation 99 on room air. Lungs occasional clicks. No wheezing. Heart is audible and regular with good tones. Abdomen nontender. Legs no tenderness, no edema. Repeat chest x-ray 06/20/18 no acute cardiopulmonary processes. The patient was given Tamiflu before he was discharged at 2:39 p.m. FINAL DIAGNOSES: 1. ACUTE VIRAL INFECTION, INFLUENZA A. 2. MODERATE HYPOXEMIA. 3. BIBASILAR ATELECTASIS, QUESTIONABLE PNEUMONIA. 4. HISTORY OF HYPERTENSION, CONTROLLED. 5. HISTORY OF ACUTE MYOCARDIAL INFARCTION, 2010 WITH CARDIAC CATHETERIZATION AND STENT, 2011 AND 2016. 6. HISTORY OF CHRONIC TOBACCO USE AND ABUSE, STOPPED 2010. 7. THE PATIENT WAS ADVISED TO RESUME ALL HIS MEDICATIONS AND CALL THE CLINIC FOR AN APPOINTMENT TO SEE PRASHANT JOSE. TIME SPENT: GREATER THAN 30 MINUTES MTDD
== END 2018-06-21 14:39 | disposition home or self-care (01) ==
LOC: ED 03:30 → MEDSURG A 05:51 → INTOOBSV 05:51
PROVIDERS: ADMIT General Practice; ATTEND General Practice
DX: J11.1 Influenza due to unidentified influenza virus with other respiratory manifestations (principal); J98.11 Atelectasis; J18.9 Pneumonia, unspecified organism; J06.9 Acute upper respiratory infection, unspecified; R50.9 Fever, unspecified; R05 Cough; R06.00 Dyspnea, unspecified; R09.81 Nasal congestion; R09.02 Hypoxemia; I10 Essential (primary) hypertension; I25.2 Old myocardial infarction
CPT/HCPCS: 36415; 80053; 81001; 82803; 83605; 84145; 85025; 87040; 87502; 87651; 93005; 93010; 94640; 96365; 99284

== ENCOUNTER 2018-09-25 06:21 | Emergency (ER) ==
[2018-09-25 06:28] VITALS: TEMP 96.3; BMI 26.2
[2018-09-25] MEDS ORDERED: MORPHINE 2 MG/ML SYRINGE IVP STA (06:38)
[2018-09-25] MEDS ORDERED: ZOFRAN 4 MG/2 ML IVP STA (06:39)
--- NOTE | 2018-09-25 06:46 | ED.PDOC ---
General Stated Complaint: radha been hurting for 4-5 hours Time Seen by Physician: 06:30 Mode of Arrival: Walk-In Information Source: Patient Exam Limitations: No limitations Nursing and Triage Documentation Reviewed and Agree: Yes Does patient meet sepsis criteria?: No System Inflammatory Response Syndrome: Not Applicable <JACKI WITT Filed: 09/25/18 06:46> <SINCEREJACKI Filed: 09/25/18 08:27> ED Provider: Dr. JACKI LAWRENCE Chief Complaint: Abdominal Pain Primary Care Provider: PRASHANT JOSE Sepsis Protocol: For patient's 13 years and over: Temp is 96.8 and below OR 101 and greater Pulse >90 BPM Resp >20/minute Acutely Altered Mental Status Are patient's symptoms suggestive of a new infection, such as: -Pneumonia -Skin, Soft Tissue -Endocarditis -UTI -Bone, Joint Infection -Implantable Device -Acute Abdominal Infection -Wound Infection -Meningitis -Blood Stream Catheter Infection -Unknown GI Complaint Exam - Abdominal Pain Complaint/Exam Onset: Gradual Duration: 4-5 hours Symptoms Are: Still present Timing: Constant Initial Severity: Mild Current Severity: Mild Location of Pain: Discrete, RUQ Character: Reports: Dull, Aching, Burning Aggravating: Reports: None Alleviating: Reports: None Associated Signs and Symptoms: Denies: Diaphoresis, Fever, Cough, Chest pain, Dizziness, Back pain, Constipation, Blood in stool, Dysuria, Urinary frequency, Decreased urine output, Decreased appetite, Discharge, Nausea, Vomiting, Diarrhea, Decreased activity Abdominal Findings: Present: None Differential Diagnoses: Pancreatitis, GB, PUD Quality Indicator For Non-Traumatic Chest Pain/Syncope: EKG Performed <JACKI WITT Filed: 09/25/18 06:46> Review of Systems - Review Of Systems Constitutional: Reports: No symptoms Eyes: Reports: No symptoms Ears, Nose, Mouth, Throat: Reports: No symptoms Respiratory: Reports: No symptoms Cardiac: Reports: No symptoms GI: Reports: Abdominal pain : Reports: No symptoms Musculoskeletal: Reports: No symptoms Skin: Reports: No symptoms Neurological: Reports: No symptoms Endocrine: Reports: No symptoms Hematologic/Lymphatic: Reports: No symptoms All Other Systems: Reviewed and Negative <JACKI WITT Filed: 09/25/18 06:46> Past Medical History - Past Medical History Previously Healthy: Yes Endocrine: Reports: None Cardiovascular: Reports: None Respiratory: Reports: None Hematological: Reports: None Gastrointestinal: Reports: None Genitourinary: Reports: None Neuro/Psych: Reports: None Musculoskeletal: Reports: None Cancer: Reports: None - Surgical History General Surgical History: Reports: None - Family History Family History: Reports: None - Social History Smoking Status: Former smoker Hx Substance Use: No Alcohol Screening: None - Immunizations Tetanus Shot up to Date: No <MIRYAMJACKI - Last Filed: 09/25/18 06:46> Physical Exam - Physical Exam Appearance: Well-appearing, No pain distress, Well-nourished Pain Distress: Moderate Eyes: ZOE, EOMI, Conjunctiva clear ENT: Ears normal, Nose normal, Oropharynx normal Neck: Supple Respiratory: Airway patent, Breath sounds clear, Breath sounds equal, Respirations nonlabored Cardiovascular: RRR, Pulses normal, No rub, No murmur GI/: Soft, Nontender, No masses, Bowel sounds normal Musculoskeletal: Normal strength, ROM intact, No edema, No calf tenderness Skin: Warm, Dry, Normal color Neurological: Sensation intact, Motor intact, Reflexes intact, Cranial nerves intact, Alert, Oriented Psychiatric: Affect appropriate, Mood appropriate <MIRYAMJACKI - Last Filed: 09/25/18 06:46> Physician Notification - Case Discussed Physician Notified: dr lawrence Time of Notification: 07:00 <MIRYAMJACKI Last Filed: 09/25/18 06:46> Critical Care Note - Critical Care Note Total Time (mins): 0 <JACKI LAWRENCE - Last Filed: 09/25/18 08:27> Course - Course Hematology/Chemistry: 09/25/18 06:42 09/25/18 06:42 <JACKI LAWRENCE - Last Filed: 09/25/18 08:27> - Course Orders, Labs, Meds: Lab Review 09/25/18 09/25/18 09/25/18 06:42 06:42 08:05 WBC 8.55 RBC 4.65 L Hgb 14.2 Hct 42.7 MCV 91.8 MCH 30.5 MCHC 33.3 RDW Coeff of Erin 13.8 Plt Count 227 Immature Gran % (Auto) 0.6 Neut % (Auto) 56.4 Lymph % (Auto) 31.8 [place] % (Auto) 8.2 Eos % (Auto) 2.8 Baso % (Auto) 0.2 Immature Gran # (Auto) 0.1 Neut # (Auto) 4.8 Lymph # (Auto) 2.7 [place] # (Auto) 0.7 Eos # (Auto) 0.2 Baso # (Auto) 0.0 Sodium 137.2 Potassium 3.92 Chloride 102.6 Carbon Dioxide 23.5 Anion Gap 15.02 BUN 14.6 Creatinine 1.19 H Estimated GFR (MDRD) 75.00 BUN/Creatinine Ratio 12.26 Glucose 168.3 H Calcium 9.14 Total Bilirubin 0.37 AST 28.1 ALT 29.8 Alkaline Phosphatase 80.5 Total Creatine Kinase 247.2 H CK-MB (CK-2) 2.190 CK-MB (CK-2) % 0.8800 Troponin I < 0.012 Total Protein 7.54 Albumin 4.50 Globulin 3.04 Albumin/Globulin Ratio 1.48 Amylase 131.4 H Lipase 201.1 Urine Color Yellow Urine Clarity Clear Urine pH 5.0 Ur Specific [place] 1.025 Urine Protein Negative Urine Glucose (UA) 2+ Urine Ketones Negative Urine Blood Negative Urine Nitrite Negative Urine Bilirubin Negative Urine Urobilinogen 0.2 Ur Leukocyte Esterase Negative Orders Category Date Time Status EKG-(ED ONLY) Stat CARDIO 09/25/18 06:35 Completed NPO REMINDER: IMAGING ONCE CARE 09/25/18 07:28 Active ED MAIN LINE ASSEMBLER APPLIED .ONCE EMERGENCY 09/25/18 06:36 Active IV [ED IV/MEDIPORT/POWERPORT] .ONCE EMERGENCY 09/25/18 06:38 Active AMYLASE Stat LAB 09/25/18 06:42 Completed CBC W/ AUTO DIFF Stat LAB 09/25/18 06:42 Completed COMPREHENSIVE METABOLIC PANEL Stat LAB 09/25/18 06:42 Completed CREATINE KINASE Stat LAB 09/25/18 06:42 Completed LIPASE Stat LAB 09/25/18 06:42 Completed TROPONIN I Stat LAB 09/25/18 06:42 Completed URINALYSIS C & S IF INDICATED Stat LAB 09/25/18 08:05 Completed 0.9 % Sodium Chloride [Saline Flush] MEDS 09/25/18 06:38 Active 1 syr IVF PRN PRN Morphine Sulfate [Morphine 2 mg/ml Syringe] MEDS 09/25/18 06:38 Discontinued 2 mg IVP ONCE STA Ondansetron HCl/Pf [Zofran 4 mg/2 ml] MEDS 09/25/18 06:39 Discontinued 4 [address] IVP ONCE STA CT ABDOMEN/PELVIS WO CONTRAST Stat RADS 09/25/18 06:39 Completed CXR [CHEST, 1V AP ONLY] Stat RADS 09/25/18 06:39 Completed ULTRASOUND ABDOMEN, RT. UPPER QUAD [U/S ABDOMEN RT RADS 09/25/18 07:28 Completed UPPER QUAD] Stat Medications Generic Name Dose Route Start Last Admin Trade Name Freq PRN Reason Stop Dose Admin Sodium Chloride 1 syr 09/25/18 06:38 09/25/18 07:17 Saline Flush IVF 1 syr PRN PRN Administration To flush IV Discontinued Medications Generic Name Dose Route Start Last Admin Trade Name Freq PRN Reason Stop Dose Admin Morphine Sulfate 2 mg 09/25/18 06:38 09/25/18 07:15 Morphine 2 Mg/Ml Syringe IVP 09/25/18 06:39 2 mg ONCE STA Administration Ondansetron HCl 4 mg 09/25/18 06:39 09/25/18 07:15 Zofran 4 Mg/2 Ml IVP 09/25/18 06:40 4 mg ONCE STA Administration Vital Signs: Temp Pulse Resp BP Pulse Ox 09/25/18 06:22 96.3 F L 72 20 151/91 H 98 Departure <JACKI WITT - Last Filed: 09/25/18 06:46> - Departure Time of Disposition: 08:20 Pt referred to PMD for follow-up: Yes IPMP verified?: No Disposition Discussed With: Patient <JACKI LAWRENCE - Last Filed: 09/25/18 08:27> - Departure Disposition: DISCH/TSF TO REHAB Discharge Problem: Midepigastric pain, GERD (gastroesophageal reflux disease), Serum amylase elevation, Intercostal muscle strain, Hypertension Instructions: Gastroesophageal Reflux Disease (ED), Muscle Strain (ED), Heart Healthy Diet (ED), Hypertension (ED) Condition: Good Additional Instructions: Remain on diet as tolerated and reduce highly acidic foods, Take Antacids as directed Monitor BP as outpatient See PCP in 1 week Allergies/Adverse Reactions: Allergies lisinopril Allergy (Mild, Verified 09/25/18 06:28) angioedema, cough Patient will notify drugstore codeine Adverse Reaction (Verified 09/25/18 06:28) Home Medications: Ambulatory Orders Aspirin [Lo-Dose Aspirin EC] 81 mg PO DAILY 12/26/16 Hydrocodone Bit/Acetaminophen [[place] 7.5-325] 1 tab PO TID PRN 12/26/16 Additional Comments Additional Comments: Patient resting comfortably; NAD. Describes pain as located RUQ into mid epigastrium-burning sensation without radiation into abdomen or posteriorly to infrascapular region. Denies associated Nausea or vomiting, appetite changes. Incidentally also comments he has recently note bright red rectal bleeding with BM and when wiping. States had a colonoscopy last year which revealed internal hemorrhoids. <JACKI LAWRENCE - Last Filed: 09/25/18 08:27>
--- NOTE | 2018-09-25 07:26 | CT ---
EXAM: CT of the abdomen pelvis without contrast History: Abdominal pain. Comparison: CT abdomen pelvis 06/18/2018 Technique: Multiplanar CT images through the abdomen pelvis were obtained without the administration of IV contrast Findings: Lung bases are clear. No acute osseous abnormalities. Gallbladder is mildly distended. Spleen is unremarkable. Stable 1.3 cm cyst within the caudate lobe of the liver. No peripancreatic inflammation. Adrenal glands are unremarkable. No renal stones an d no hydronephrosis. Atherosclerotic vascular calcifications. The appendix is normal. Small fat-co ntaining umbilical hernia. No bowel obstruction. No bladder wall thickening. Prostate is not enlar ged. No perirectal inflammation. No free air. Trace nonspecific pelvic fluid. No abdominal aortic aneurysm. No pathologically enlarged pelvic lymph nodes. No ureteral calculi. Colonic diverticulo sis. Impression: 1. Mildly distended gallbladder. Recommend correlation with abdominal ultrasound . 2. Colonic diverticulosis without evidence for diverticulitis. 3. Trace nonspecific pelvic fluid. 4. Stable small simple cyst within the caudate lobe of the liver. 5. Atherosclerotic vascular disease
--- NOTE | 2018-09-25 08:09 | US ---
EXAM: Right upper quadrant abdominal ultrasound. History: Right upper quadrant abdominal pain. Comparison: CT abdomen pelvis 09/25/2018 Technique: Multiple sonographic images through the abdomen were obtained. Color duplex Doppler was used to interrogate vascular flow. Findings: No focal liver lesions. There is antegrade flow within the main portal vein. No abdomina l ascites. The pancreas is not well visualized due to obscuration by bowel gas. Right kidney is unr emarkable. Gallbladder is mildly distended but there are no shadowing gallstones. Gallbladder wall is upper limits of normal in thickness. Common bile duct measures 0.6 cm in caliber. Impression: A distended gallbladder but no shadowing gallstones. Gallbladder wall is upper limits o f normal in thickness.
--- NOTE | 2018-09-25 08:16 | DI ---
EXAM: Single view of the chest. History: Chest pain. Comparison: Chest radiograph 06/20/2018 Findings: Heart size is normal. No focal consolidation. No appreciable pleural fluid and no pneumo thorax. No acute osseous abnormalities. Impression: No acute cardiopulmonary process
[2018-09-25 08:45] VITALS: BP 131/68
== END 2018-09-25 08:41 | disposition home or self-care (01) ==
LOC: ED 06:21
DX: R10.13 Epigastric pain (principal); K21.9 Gastro-esophageal reflux disease without esophagitis; S29.019A Strain of muscle and tendon of unspecified wall of thorax, initial encounter; I10 Essential (primary) hypertension; R74.8 Abnormal levels of other serum enzymes; K92.1 Melena
CPT/HCPCS: 36415; 80053; 81001; 82150; 82550; 82553; 83690; 84484; 85025; 93005; 93010; 96360; 96374; 96375; 99283

== ENCOUNTER 2018-11-14 01:28 | Observation (INO) ==
[2018-11-14] MEDS ORDERED: ZOFRAN 4 MG/2 ML IVP STA (01:58)
[2018-11-14] MEDS ORDERED: SODIUM CHLORIDE 1,000 ML IV STA (01:58)
[2018-11-14] MEDS ORDERED: NITROSTAT SL STA (01:59)
[2018-11-14] MEDS ORDERED: DILAUDID 1 MG/ML SYRINGE IVP STA ×2 (02:00→04:18)
[2018-11-14] MEDS ORDERED: GI COCKTAIL PO STA (02:01)
--- NOTE | 2018-11-14 02:18 | ED.PDOC ---
General ED Provider: Dr. CLARK EPSTEIN Chief Complaint: Abdominal Pain Stated Complaint: Patient is a 63 year old male who comes to the ER with epigastric pain that started tonight @ 10 pm with radiation to the chest. Feels like prior [place]. Took Nitroglycerine but did not help. Has history of CAD with multiple stents placed at [facility] By Dr Seals. Was placed 9 years ago. Time Seen by Physician: 01:45 Mode of Arrival: Walk-In Information Source: Patient Exam Limitations: No limitations Primary Care Provider: PRASHANT JOSE Seen Within Last 72 Hours for Same Complaint By: ED Nursing and Triage Documentation Reviewed and Agree: Yes Does patient meet sepsis criteria?: No System Inflammatory Response Syndrome: Not Applicable Sepsis Protocol: For patient's 13 years and over: Temp is 96.8 and below OR 101 and greater Pulse >90 BPM Resp >20/minute Acutely Altered Mental Status Are patient's symptoms suggestive of a new infection, such as: -Pneumonia -Skin, Soft Tissue -Endocarditis -UTI -Bone, Joint Infection -Implantable Device -Acute Abdominal Infection -Wound Infection -Meningitis -Blood Stream Catheter Infection -Unknown GI Complaint Exam - Abdominal Pain Complaint/Exam Onset: Sudden Duration: 6 Symptoms Are: Still present Timing: Constant Initial Severity: Moderate Current Severity: Severe Location of Pain: Epigastric Radiates To: Reports: Chest Character: Reports: Burning Aggravating: Reports: None Alleviating: Reports: None Associated Signs and Symptoms: Reports: Chest pain AAA Risk Factors: Reports: None Cardiac Risk Factors: Reports: None Testicular Torsion Risk Factors: Reports: None Surgical Obstruction Risk Factors: Reports: None Related Surgical History: Reports: None Abdominal Findings: Present: None Differential Diagnoses: ACS, Gastroenteritis, Pancreatitis Review of Systems - Review Of Systems Constitutional: Reports: No symptoms Eyes: Reports: No symptoms Ears, Nose, Mouth, Throat: Reports: No symptoms Respiratory: Reports: No symptoms Cardiac: Reports: Chest pain GI: Reports: Nausea : Reports: No symptoms Musculoskeletal: Reports: No symptoms Skin: Reports: No symptoms Neurological: Reports: Anxiety Endocrine: Reports: No symptoms Hematologic/Lymphatic: Reports: No symptoms All Other Systems: Reviewed and Negative Past Medical History - Past Medical History Previously Healthy: Yes Endocrine: Reports: None Cardiovascular: Reports: CAD, [place], Hypertension Respiratory: Reports: None Hematological: Reports: None Gastrointestinal: Reports: GERD Genitourinary: Reports: None Neuro/Psych: Reports: None Musculoskeletal: Reports: Back Pain (goes to pain management) Cancer: Reports: None - Surgical History General Surgical History: Reports: Stent - Family History Family History: Reports: None - Social History Smoking Status: Former smoker Hx Substance Use: No Alcohol Screening: None - Immunizations Tetanus Shot up to Date: No Physical Exam - Physical Exam Appearance: Ill-appearing Ill-appearing: Mild Pain Distress: Severe Neck: Supple Respiratory: Airway patent, Breath sounds clear, Breath sounds equal, Respirations nonlabored GI/: Soft, Tender (Mild tenderness on the Epigastri area. ) Musculoskeletal: Normal strength, ROM intact, No edema, No calf tenderness Skin: Warm, Dry, Normal color Neurological: Sensation intact, Motor intact, Cranial nerves intact, Alert, Oriented Psychiatric: Anxious Interpretation - Radiology Interpretation Radiology Interpretation By: Radiologist Radiology Results: Positive Exam Interpreted: CT Scan (mild diverticultiis ) Radiology Interpretation By: Radiologist Radiology Results: Negative Exam Interpreted: Portable CXR - Director Of Services Rate: Normal Rhythm: Sinus Ectopy: None - EKG Interpretation Time of EKG #1: 01:42 Rate: Normal Rhythm: Sinus Ectopy: None [place]: NL Interpretation: Left anterior Fasciular Block, nonspecific T wave abnormality Re-Evaluation - Re-Evaluation Time of Re-Evaluation: 04:21 Status: Improved (but has started coming back in the Epigastric area. ) Physician Notification - Case Discussed Physician Notified: Dr Gordillo Time of Notification: 04:15 (admit for observation. ) Critical Care Note - Critical Care Note Total Time (mins): 45 Course - Course Hematology/Chemistry: 11/14/18 01:55 11/14/18 02:15 Orders, Labs, Meds: Lab Review 11/14/18 11/14/18 11/14/18 01:55 02:15 02:15 WBC 9.99 RBC 3.87 L Hgb 12.0 L Hct 36.6 L MCV 94.6 H MCH 31.0 MCHC 32.8 RDW Coeff of Erin 14.4 Plt Count 272 Immature Gran % (Auto) 0.4 Neut % (Auto) 68.0 Lymph % (Auto) 22.0 [place] % (Auto) 7.0 Eos % (Auto) 2.3 Baso % (Auto) 0.3 Immature Gran # (Auto) 0.0 Neut # (Auto) 6.8 Lymph # (Auto) 2.2 [place] # (Auto) 0.7 Eos # (Auto) 0.2 Baso # (Auto) 0.0 Sodium 139.4 Potassium 3.91 Chloride 103.5 Carbon Dioxide 26.4 Anion Gap 13.41 BUN 11.1 Creatinine 1.32 H Estimated GFR (MDRD) 67.00 BUN/Creatinine Ratio 8.40 Glucose 185.8 H Calcium 9.05 Total Bilirubin 0.25 AST 25.6 ALT 24.2 Alkaline Phosphatase 61.6 Total Creatine Kinase 308.5 H CK-MB (CK-2) 1.690 CK-MB (CK-2) % 0.5400 Troponin I < 0.012 Total Protein 7.11 Albumin 3.94 Globulin 3.17 Albumin/Globulin Ratio 1.24 Amylase 112.5 H Lipase 130.2 Orders Category Date Time Status EKG-(ED ONLY) Stat CARDIO 11/14/18 01:58 Completed EKG-(IP & OP ONLY) Routine CARDIO 11/14/18 04:23 Ordered ACTIVITY .Up ad Sally CARE 11/14/18 04:25 Active INTAKE & OUTPUT Q8HR CARE 11/14/18 04:22 Active NPO REMINDER: IMAGING ONCE CARE 11/14/18 02:53 Completed VITAL SIGNS Q4HR CARE 11/14/18 04:22 Active 2 GRAM SODIUM DIET DIETARY 11/14/18 Breakfast Ordered ED SALESPERSON MEATS APPLIED .ONCE EMERGENCY 11/14/18 01:58 Active ED IV/MEDIPORT/POWERPORT .ONCE EMERGENCY 11/14/18 01:58 Active AMYLASE Stat LAB 11/14/18 02:15 Completed BASIC METABOLIC PANEL DAILY@0600 LAB 11/15/18 06:00 Ordered CBC W/ AUTO DIFF DAILY@0600 LAB 11/15/18 06:00 Ordered CBC W/ AUTO DIFF Stat LAB 11/14/18 01:55 Completed COMPREHENSIVE METABOLIC PANEL Stat LAB 11/14/18 02:15 Completed CREATINE KINASE Q8H LAB 11/14/18 10:30 Ordered CREATINE KINASE Q8H LAB 11/14/18 18:30 Ordered CREATINE KINASE Stat LAB 11/14/18 02:15 Completed LIPASE Stat LAB 11/14/18 02:15 Completed TROPONIN I Q8H LAB 11/14/18 10:30 Ordered TROPONIN I Q8H LAB 11/14/18 18:30 Ordered TROPONIN I Stat LAB 11/14/18 02:15 Completed 0.9 % Sodium Chloride [Saline Flush] MEDS 11/14/18 01:58 Active 1 syr IVF PRN PRN Acetaminophen [Tylenol] MEDS 11/14/18 04:22 Ordered 650 mg PO Q4H PRN Enoxaparin Sodium [Lovenox] MEDS 11/14/18 09:00 Ordered 40 mg SUBCUT DAILY Hydromorphone HCl [Dilaudid 1 mg/ml Syringe] MEDS 11/14/18 02:00 Discontinued 1 mg IVP ONCE STA Hydromorphone HCl [Dilaudid 1 mg/ml Syringe] MEDS 11/14/18 04:18 Discontinued 1 mg IVP ONCE STA Hydromorphone HCl [Dilaudid 1 mg/ml Syringe] MEDS 11/14/18 04:22 Ordered 1 mg IVP Q4HR PRN Levofloxacin/D5w [Levaquin] 100 ml MEDS 11/14/18 04:22 Discontinued IV .STK-MED Levofloxacin/D5w [Levaquin] 500 mg MEDS 11/15/18 09:00 Ordered Premix 100 ml D5w 1 bag IV DAILY Levofloxacin/D5w [Levaquin] 500 mg MEDS 11/14/18 04:18 Active Premix 100 ml D5w 1 bag IV ONCE Mag-Al Plus//Lidocaine [Gi Cocktail] MEDS 11/14/18 02:01 Discontinued 30 ml PO ONCE STA Nitroglycerin [Nitrostat] MEDS 11/14/18 01:59 Discontinued 0.4 mg SL ONCE STA Ondansetron HCl/Pf [Zofran 4 mg/2 ml] MEDS 11/14/18 01:58 Discontinued 4 mg IVP ONCE STA Ondansetron HCl/Pf [Zofran 4 mg/2 ml] MEDS 11/14/18 04:22 Ordered 4 mg IVP Q6H PRN Sodium Chloride 0.9% [Sodium Chloride] 1,000 ml MEDS 11/14/18 04:30 Ordered IV 125 mls/hr Sodium Chloride 0.9% [Sodium Chloride] 1,000 ml MEDS 11/14/18 01:58 Active IV 75 mls/hr RESUSCITATION STATUS Routine OTHERS 11/14/18 04:22 Ordered CHEST, 1V AP ONLY Stat RADS 11/14/18 01:[address] ABDOMEN/PELVIS W/WO CONTRAS Stat RADS 11/14/18 02:53 Completed Medications Generic Name Dose Route Start Last Admin Trade Name Freq PRN Reason Stop Dose Admin Acetaminophen 650 mg 11/14/18 04:22 Tylenol PO Q4H PRN Fever > 102 Hydrocodone Bitart/Acetaminophen 1 tab 11/14/18 04:28 [place] 7.5-325 PO TID PRN Moderate pain Alprazolam 0.5 mg 11/14/18 04:28 Xanax PO DIRECTED PRN Anxiety Aspirin 81 mg 11/14/18 09:00 Aspirin Ec PO DAILY [facility] Clopidogrel Bisulfate 75 mg 11/14/18 09:00 Plavix PO DAILY [facility] Enoxaparin Sodium 40 mg 11/14/18 09:00 Lovenox SUBCUT DAILY [facility] Gabapentin 300 mg 11/14/18 09:00 Neurontin PO TID [facility] Hydromorphone HCl 1 mg 11/14/18 04:22 Dilaudid 1 Mg/Ml Syringe IVP Q4HR PRN Severe Pain Sodium Chloride 1,000 mls @ 75 mls/hr 11/14/18 01:58 11/14/18 02:02 Sodium Chloride IV 11/14/18 15:17 75 mls/hr .[id number] STA Administration Levofloxacin/Dextrose 500 mg/ 100 mls @ 100 mls/hr 11/14/18 04:18 11/14/18 04 :25 Dextrose IV 11/14/18 05:17 100 mls/hr ONCE STA Administration Levofloxacin/Dextrose 500 mg/ 100 mls @ 100 mls/hr 11/15/18 09:00 Dextrose IV 11/18/18 08:59 DAILY [facility] Sodium Chloride 1,000 mls @ 125 mls/hr 11/14/18 04:30 Sodium Chloride IV .Q8H [facility] Metronidazole 500 mg/ Sodium 100 mls @ 100 mls/hr 11/14/18 04:30 Chloride IV 11/17/18 04:29 TID [facility] Metoprolol Tartrate 50 mg 11/14/18 08:00 Lopressor PO BIDWM [facility] Nitroglycerin 0.4 mg 11/14/18 04:28 Nitrostat SL PRN PRN Chest pain Non-Formulary Medication 50 mg 11/14/18 09:00 Losartan Potassium [Cozaar] PO DAILY [facility] Ondansetron HCl 4 mg 11/14/18 04:22 Zofran 4 Mg/2 Ml IVP Q6H PRN Nausea / Vomiting Pantoprazole Sodium 40 mg 11/15/18 09:00 Protonix Iv IVP DAILY [facility] Sodium Chloride 1 syr 11/14/18 01:58 11/14/18 02:10 Saline Flush IVF 1 syr PRN PRN Administration To flush IV Discontinued Medications Generic Name Dose Route Start Last Admin Trade Name Freq PRN Reason Stop Dose Admin Al Hydroxide/Mg Hydroxide 30 ml 11/14/18 02:01 11/14/18 02:05 Gi Cocktail PO 11/14/18 02:02 30 ml ONCE STA Administration Hydromorphone HCl 1 mg 11/14/18 02:00 11/14/18 02:06 Dilaudid 1 Mg/Ml Syringe IVP 11/14/18 02:01 1 mg ONCE STA Administration Hydromorphone HCl 1 mg 11/14/18 04:18 11/14/18 04:26 Dilaudid 1 Mg/Ml Syringe IVP 11/14/18 04:19 1 mg ONCE STA Administration Nitroglycerin 0.4 mg 11/14/18 01:59 11/14/18 02:05 Nitrostat SL 11/14/18 02:00 0.4 mg ONCE STA Administration Ondansetron HCl 4 mg 11/14/18 01:58 11/14/18 02:05 Zofran 4 Mg/2 Ml IVP 11/14/18 01:59 4 mg ONCE STA Administration Pantoprazole Sodium 40 mg 11/14/18 04:30 Protonix Iv IVP 11/14/18 04:31 ONCE STA Vital Signs: Temp Pulse Resp BP Pulse Ox 11/14/18 01:30 98.3 F 74 20 139/81 98 Departure - Departure Time of Disposition: 04:31 Disposition: PLACED OBSERVATION Discharge Problem: Abdominal pain, Diverticulitis Chest pain Qualifiers: Chest pain type: other chest pain Qualified Code(s): R07.89 - Other chest pain Condition: Fair Pt referred to PMD for follow-up: No IPMP verified?: No Allergies/Adverse Reactions: Allergies lisinopril Allergy (Mild, Verified 11/14/18 01:45) angioedema, cough Patient will notify drugstore codeine Adverse Reaction (Verified 11/14/18 01:45) morphine Adverse Reaction (Verified 11/14/18 01:45) Home Medications: Ambulatory Orders Aspirin [Lo-Dose Aspirin EC] 81 mg PO DAILY 12/26/16 Hydrocodone Bit/Acetaminophen [[place] 7.5-325] 1 tab PO TID PRN 12/26/16 Alprazolam [Xanax] 0.5 mg PO DIRECTED PRN 11/14/18 Disposition Discussed With: Patient, Family
--- NOTE | 2018-11-14 02:38 | DI ---
EXAM: Chest, single view, 11/14/2018 HISTORY: Chest pain COMPARISON: 09/25/2018 FINDINGS / IMPRESSION: Cardiomediastinal contours appear stable. Basilar interstitial opacitis may relate to atelectasis or pneumonitis. There is no focal pulmonary consolidation. No pleural effusio n or pneumothorax.
--- NOTE | 2018-11-14 03:58 | CT ---
EXAM: CT abdomen pelvis without and with intravenous contrast 11/14/2018. Sagittal and coronal refo rmatted images obtained HISTORY: Epigastric pain COMPARISON: 09/25/2018 FINDINGS: The liver and gallbladder show no acute abnormality. The previously described hepatic cys t appears stable. The adrenal glands and kidneys show no acute process. There is no hydronephrosis. The spleen and pa ncreas show no acute abnormality. The stomach appears distended with fluid and gastric food contents . Questionable mucosal thickening of the distal stomach and duodenum. Gastritis/duodenitis is not e xcluded. Small bowel is normal in caliber without obstruction. The appendix is normal. Inflammatory strandin g along the posterior aspect of the distal descending colon. There is focal inflammation surrounding a diverticulum. This most compatible with acute uncomplicated diverticulitis. No free air, free fl uid or abscess. IMPRESSION: 1. Focal inflammatory change along the posterior aspect of the distal descending colon. The appeara nce is suggestive of acute uncomplicated diverticulitis. 2. Questionable mucosal thickening of the distal stomach or proximal duodenum. Gastritis/duodenitis not excluded.
[2018-11-14] MEDS ORDERED: LEVAQUIN 500 MG in PREMIX 100 ML D5W 1 BAG IV STA (04:18)
[2018-11-14] MEDS ORDERED: DILAUDID 1 MG/ML SYRINGE IVP PRN (04:22)
[2018-11-14] MEDS ORDERED: LEVAQUIN 100 ML IV ONE (04:22)
[2018-11-14] MEDS ORDERED: TYLENOL PO PRN (04:22)
[2018-11-14] MEDS ORDERED: ZOFRAN 4 MG/2 ML IVP PRN (04:22)
[2018-11-14] MEDS ORDERED: NITROSTAT SL PRN (04:28)
[2018-11-14] MEDS ORDERED: NORCO 7.5-325 PO PRN (04:28)
[2018-11-14] MEDS ORDERED: SODIUM CHLORIDE 1,000 ML IV SCH (04:30)
[2018-11-14] MEDS ORDERED: PROTONIX IV IVP STA (04:30)
[2018-11-14 05:24] VITALS: BMI 26.9
[2018-11-14] MEDS ORDERED: FLAGYL 500 MG/100 ML 100 ML IV ONE (07:07)
[2018-11-14] MEDS: FLAGYL 500 MG/100 ML 500 MG in PREMIX 100 ML NS 1 BAG IV SCH ×2 (07:09→12:37)
[2018-11-14] MEDS ORDERED: LOPRESSOR PO SCH (08:00)
[2018-11-14] MEDS: NEURONTIN PO SCH ×2 (08:07→14:46)
[2018-11-14] MEDS ORDERED: COZAAR PO SCH (09:00)
[2018-11-14] MEDS ORDERED: PLAVIX PO SCH (09:00)
[2018-11-14] MEDS ORDERED: ASPIRIN EC PO SCH (09:00)
[2018-11-14] MEDS ORDERED: LOVENOX SUBCUT SCH (09:00)
[2018-11-14 10:35] VITALS: TEMP 98.2
--- NOTE | 2018-11-14 11:53 | PCM.CONS ---
CONSULTING PROVIDER: Dr. ISAIAH MCKEON ATTENDING PROVIDER: Dr. Dalton RICE DATE OF SERVICE: 11/14/18 SUBJECTIVE: This 63 year old BLACK/ M was hospitalized 11/14/18 and seen on consultation for abdominal pain, epigastric diagnosed as diverticulitis but does not have any lower quadrant pain at all. The patient started after he ate. No exertional chest discomfort or pain. The patient has a history of stent in 2011 and a heart attack in 2010. REVIEW OF SYSTEMS: CONSTITUTIONAL: No night sweats. No fatigue, malaise, lethargy. No fever or chills. HEENT: Eyes: No visual changes. No eye pain. No eye discharge. ENT: No runny nose. No epistaxis. No sinus pain. No odynophagia. No congestion. RESPIRATORY: No cough, no congestion. No hemoptysis. No shortness of breath. CARDIOVASCULAR: No angina symptoms. No CHF symptoms. No atypical chest pain for CAD. No palpitations. No orthopnea. GASTROINTESTINAL: Epigastric discomfort and pain after he had meal. No abdominal pain. No nausea or vomiting. No diarrhea or constipation. No hematemesis. No hematochezia. GENITOURINARY: No urgency. No frequency. No dysuria. No hematuria. No obstructive symptoms. No discharge. No pain. No significant abnormal bleeding. MUSCULOSKELETAL: No musculoskeletal pain; no joint swelling. NEUROLOGICAL: Awake, alert, oriented to time, place and person. No headache. No neck pain. No syncope. No seizures. No dizziness. PSYCHIATRIC: Not anxious. No depression. No suicidal thoughts. No homicidal thoughts. SKIN: No rash. No lesions. No wounds. ENDOCRINE: No unexplained weight loss. No weight gain. HEMATOLOGIC/LYMPHATIC: No anemia. No purpura. No petechiae. No prolonged or excessive bleeding. No palpable lymph nodes. ALLERGIES: Lisinopril Codeine Morphine MEDICATIONS: [place] 7.5-325mg one tablet PO three times a day PRN Lo-dose aspirin 81mg PO Daily Plavix 75mg PO daily Metoprolol 50mg PO twice ad ay Neurontin 300mg PO three times a day Nitroglycerin 0.4mg SL PRN Cozaar 50mg Po daily Xanax 0.5mg PO bedtime PRN PAST MEDICAL HISTORY: CAD Dyslipidemia Hypertension History of smoking quit 2010 Chronic kidney disease. PHYSICAL EXAMINATION: GENERAL: The patient is awake, alert and oriented, lying in bed in no distress. VITAL SIGNS: Temperature 99.8 F, Pulse 70, Respiratory Rate 18, BP 141/87, Pulse Ox 97% HEENT: Head normocephalic, atraumatic. Eyes: Extraocular muscles are intact. Pupils are equal, round and reactive to light and accommodation. Ears: No lesions. Nose appeared normal. Throat: No exudate or erythema. NECK: Supple. No JVD, no carotid bruit. No lymphadenopathy or thyromegaly. LUNGS: Decreased breath sounds. Clear to auscultation. Percussion note normal. Chest symmetrical. HEART: S1, S2, no S3. No murmurs. No cyanosis or clubbing. No ascites. Pulses: Dorsalis pedis and posterior tibial pulses feeble bilaterally. ABDOMEN: Soft. Bowel sounds active. No CVA tenderness. No mass felt. Mild distention. Epigastric questionable tenderness. No rebound tenderness. EXTREMITIES: No edema. Full range of motion of all extremities, equal. NEUROLOGIC: No focal deficit. Cranial nerves II through XII are grossly intact. No headache, no double vision or headache. SKIN: Warm and dry. Intact. Turgor-normal. LYMPHATIC: No palpable lymph nodes/no lymphedema. MUSCULOSKELETAL: Normal joints with no swelling. Muscle tone is normal. LAB REVIEW: 11/14/18 01:55 11/14/18 02:15 11/14/18 02:15: Triglycerides 347.0 H, Cholesterol 201.7 H, LDL Cholesterol, Calc 108, VLDL Cholesterol 69 H, HDL Cholesterol 24.0 L, Cholesterol/HDL Ratio 8.4 H 11/14/18 02:15: NT-Pro-B Natriuret Pep 24.500 11/14/18 02:15: Amylase 112.5 H, Lipase 130.2 11/14/18 02:15: Sodium 139.4, Potassium 3.91, Chloride 103.5, Carbon Dioxide 26.4, Anion Gap 13.41, BUN 11.1, Creatinine 1.32 H, Estimated GFR (MDRD) 67.00, BUN/Creatinine Ratio 8.40, Glucose 185.8 H, Calcium 9.05, Total Bilirubin 0.25, AST 25.6, ALT 24.2, Alkaline Phosphatase 61.6, Total Creatine Kinase 308.5 H, CK -MB (CK-2) 1.690, CK-MB (CK-2) % 0.5400, Troponin I < 0.012, Total Protein 7.11 , Albumin 3.94, Globulin 3.17, Albumin/Globulin Ratio 1.24 11/14/18 01:55: Hemoglobin A1c 6.32 H 11/14/18 01:55: WBC 9.99, RBC 3.87 L, Hgb 12.0 L, Hct 36.6 L, MCV 94.6 H, MCH 31.0, MCHC 32.8, RDW Coeff of Erin 14.4, Plt Count 272, Immature Gran % (Auto) 0.4, Neut % (Auto) 68.0, Lymph % (Auto) 22.0, Branch % (Auto) 7.0, Eos % (Auto) 2.3, Baso % (Auto) 0.3, Immature Gran # (Auto) 0.0, Neut # (Auto) 6.8, Lymph # ( Auto) 2.2, Branch # (Auto) 0.7, Eos # (Auto) 0.2, Baso # (Auto) 0.0 ASSESSMENT: 1. Epigastric pain diagnosed as diverticulosis which I doubt it. Similar pain with workup in September 2018, was all negative according to the patient, will review the chart. 2. Cardiac status stable with normal cardiac markers RECOMMENDATIONS/PLAN: 1. Cardiovascular status is stable at present time 2. The patient is up and about with no symptoms of coronary insufficiency. 3. The patient will need stress echo as outpatient. Plan and coordination of the patient's care discussed in the presence of Public Information Coordinator and Nurse. CONDITION: Stable SCRIBED BY: Ivan KAUR scribed while in presence of service performed by Dr. ISAIAH MCKEON on 11/14/18 ([id number])
[2018-11-14 14:58] VITALS: BP 136/87
[2018-11-14] MEDS ORDERED: LEVAQUIN 500 MG in PREMIX 100 ML D5W 1 BAG IV SCH (18:00)
[2018-11-14] MEDS ORDERED: XANAX PO PRN (21:00)
[2018-11-15] MEDS ORDERED: PROTONIX IV IVP SCH (09:00)
--- NOTE | 2018-11-15 12:29 | ECHO2D ---
Date of Exam: 11/14/18 Ordering Physician: DR. KULDIP RICE Room #: 120 Reason for Echo: SOB WITH EXERTION, CAD WITH STENTS 2011 M-Mode Normal Adult Results LV Dimensions Normal Adult Results AoV Opening excursions >1.6 >1.6 LVEDD-base- 3.5-5.8 5.4 Ao root dimensions 2.0-3.7 3.5 LVESD-base- 3.1-4.6 L. Atrium dimensions 1.9-3.8 4.0 Post. Wall thickness 0.8-1.1 1.2 IV septum (thickness) 0.7-1.2 1.2 Post. Wall excursion 0.72-1.3 NORMAL Septal motion NORMAL Systolic motion R. Ventricular cavity 1.5-2.0 NORMAL LVEF 60% 55% Paradoxical septal wall motion NORMAL 2-D : 2-D M Mode Echocardiogram was performed using apical four chamber and left parasternal long and short axis views. Mitral, tricuspid and aortic valves appear to be normal. Contractility of the left ventricle seems to be normal, so is the cavity size. BORDERLINE LEFT ATRIAL CAVITY. Aortic root appears to be normal. There is no pericardial effusion. There is no thrombus noted in the left ventricular or left aortic cavity. No mitral valve prolapse noted. M-MODE: MV: NORMAL AV: NORMAL TV: NORMAL PV: CHAMBER SIZE: BORDERLINE LEFT ATRIAL CAVITY WALL MOTION: NORMAL PERICARDIUM: NORMAL INTERPRETATION: 1. BORDERLINE LEFT VENTRICULAR HYPERTROPHY WITH BORDERLINE LEFT ATRIAL CAVITY 2. NORMAL LEFT VENTRICLE CONTRACTILITY 3. NORMAL VALVES MTDD
--- NOTE | 2018-11-20 09:27 | CONS ---
BILLING 11/14/18 LEVEL 5 MTDD
--- NOTE | 2018-11-20 14:07 | DS ---
DATE OF SERVICE: 11/14/18 DISCHARGE DIAGNOSES: 1. PEPTIC ULCER DISEASE 2. EPIGASTRIC ABDOMINAL PAIN RADIATING INTO THE CHEST. 3. CHEST PAIN WITH NEGATIVE CARDIAC ENZYMES DONE WHILE INPATIENT WITH CARDIAC EVALUATION PER DR. GRIDER. 4. CORONARY ARTERY DISEASE WITH CARDIAC STENTS. 5. HYPERTENSION BRIEF HISTORY OF PRESENT ILLNESS AND HOSPITAL COURSE: Mr. Raghu Robertson is a pleasant 63-year-old patient of [facility] who has a significant past medical history of coronary artery disease and cardiac stent. He has had four to five cardiac stents placed in the past 9 to 10 years. He did present to the emergency department with complaints of epigastric pain that was radiating into his chest, felt similar to past myocardial infarctions that he has had and this did scare him and was not relieved with Nitroglycerin. He was seen in the emergency department. He was admitted for not only a GI workup but also a cardiac workup as well. Cardiology was consulted to evaluate the patient. Workup was completed by Dr. Grider. Cardiac markers have best been negative. His troponin was negative for two sets and CK-MB was negative for two sets. His total creatinine kinase was 308.5 on admission and has come down to 278.4. Dr. Grider has reviewed his EKGs. His amylase was slightly elevated on admission at 112.5. His lipase is 130.2. He did have a CT scan to the abdomen and pelvis and it did show concerns for possible diverticulitis and possible gastritis but the patient was having no abdominal tenderness. Dr. Gordillo feels that the patient has got some peptic ulcer disease. He did respond with Protonix intravenously but I do believe that with the significant past medical history of coronary artery disease it is important that he get the stress echo done as an outpatient that is scheduled for 11/22/[address] [facility]. He is to arrive at the outpatient registration area at 6:40 a.m. due to his past medical history of [place] and cardiac stents that this is very important that this gets done just to make sure that there is no cardiac component of his chest wall pain. He is instructed not to take any Ibuprofen, Aleve or any aspirin. On exam his abdomen was nontender. His bowel sounds were hyperactive. He had no guarding. Lungs were clear. Heart regular rate and rhythm. His vital signs at discharge temperature 98.2, pulse rate 70, blood pressure 136/87. His respiratory rate 20, 02 sat 99% on room air. Telemetry - he is running normal sinus rhythm at 68. DISCHARGE MEDICATIONS: He is instructed not to take any antiinflammatory. The only thing he can take is Baby Aspirin. All of his other home medicines can be continued. He will followup with Thalia Nicolas APRN next week. The appointment was scheduled for November 20 at 2:30 p.m. He has been called in [facility] to [facility] and he needs to take this medicine daily with the largest meal. Again, he has been told about his stress echo that has been scheduled. DISCHARGE DIET: Heart Healthy. DISCHARGE ACTIVITY LEVEL: Gradually increase activity level as tolerated. DISCHARGE FOLLOWUP: Appointment as mentioned. Further orders and labs will be discussed at that appointment. TIME SPENT: GREATER THAN 30 MINUTES MTDD
--- NOTE | 2018-11-23 14:07 | HP ---
DATE OF SERVICE: 11/14/18 CHIEF COMPLAINT: Abdominal pain. HISTORY OF PRESENT ILLNESS: Mr. Raghu Robertson is a pleasant 63-year-old patient that typically sees Thalia Nicolas APRN, who presented to the emergency department with complaints of epigastric pain that started around 10 p.m. The pain radiated into his chest. He felt similar to this when he had his prior myocardial infarction. He took Nitroglycerin but this did not help. He does have a history of coronary artery disease with multiple stents placed at [facility] by Dr. Sterling. This was placed approximately nine years ago. He is a former smoker. He no longer drinks any alcohol. He reported the pain was sudden pain and described the pain as a constant type pain. It was moderate to severe in the epigastric area and into the chest described the pain as a burning type pain. Again, he does have risk factors with his history of coronary artery disease and cardiac stenting. Because of this a CT scan of the abdomen and pelvis and initial lab work and cardiac markers as well as EKG and referral to Cardiology was made during this hospitalization and decision was made to admit the patient to the hospital for further evaluation and workup. PAST MEDICAL HISTORY: Myocardial infarction Coronary artery disease Cardiac stents Hypertension Anxiety PAST SURGICAL HISTORY: Cardiac Cath and stents No surgical history noted ALLERGIES: LISINOPRIL, CODEINE AND MORPHINE CURRENT HOME MEDICATIONS: [place] 7.5 mg t.i.d as needed Aspirin 81 mg daily Plavix 75 mg daily Metoprolol 50 mg tablet twice a day with meals Neurontin 300 mg three times a day Nitroglycerin 0.4 mg sublingual as needed for chest pain Losartan 50 mg daily Alprazolam 0.5 mg tablet at bedtime as needed FAMILY HISTORY: Diabetes mellitus Heart disease Hypertension SOCIAL HISTORY: Per review of records, he does report marijuana use, former tobacco use. Denies any alcohol use or other substance abuse. REVIEW OF SYSTEMS: GENERAL: No reports of any fever, chills, nightsweats or weight changes. HEENT: No complaints of any headache, nasal drainage or sore throat. CARDIOVASCULAR: He does have epigastric pain that radiated into his chest and he does have a significant past medical history of CT and cardiac stent with 4 to 5 cardiac stents placed. LUNGS: No complaints of shortness of breath, cough or congestion. No reports of lung disease. GI: He did have complaints of upper abdominal pain after supper. The pain was located in the epigastric region and radiated into the chest. He described the pain as burning. There was no aggravating or alleviating symptoms. There were no reports of nausea, vomiting, diarrhea. No reports of constipation or blood in the stool. : No reports of dysuria, hematuria, nocturia or urinary incontinence. MUSCULOSKELETAL: No reports of unusual muscle pain, joint redness or swelling or any history of problems. NEUROLOGIC: No reports of any dizziness, fatigue or any neurological deficits. PSYCHIATRIC: No complaints of anxiety, depression or mood changes. ENDOCRINE: There are no reports of any diabetes mellitus however he did have some borderline elevated blood sugars and A1C has been requested. There are no reports of increased thirst, urination, heat or cold intolerance. INTEGUMENT: No reports of any rashes, lesions or any unusual skin changes. PHYSICAL EXAMINATION: GENERAL: He is alert and oriented. VITAL SIGNS: Stable on admission. Temperature 98.3, pulse rate 74, blood pressure 139/81, respiratory rate 20, 02 sat 98%. His weight recorded 211 lbs, height 6'2". HEENT: Head normocephalic, atraumatic. Pupils are equal. Conjunctivae are clear. Mucous membranes are moist. NECK: Supple. There is no lymphadenopathy, thyromegaly or carotid bruits auscultated. CARDIOVASCULAR: S1, S2 regular rate and rhythm. No peripheral edema. No JVD. LUNGS: Clear. Breathing is stable. ABDOMEN: Soft. No tenderness on examination to palpation. The only tenderness to the abdomen is beside the blood thinner injection site. There is no rebound tenderness, no rigidity noted. Bowel sounds are positive in all four quadrants. NEUROLOGIC: Cranial nerves 2-12 grossly intact without any overt neurological deficits. SKIN: Warm and dry. No rashes, lesions or wounds. LABS AND DIAGNOSTIC TESTING: Reviewed. On admission his white count is normal at 9.99, hemoglobin 12, hematocrit 36.6, platelet count 272. Chemistry panel is normal sodium at 139.4, potassium 3.91, BUN 11.1, creatinine 1.32, glucose on admission nonfasting was 185.8. NT-Pro-BNP 24.5, total creatinine kinase 308.5. .Cardiac markers were negative. Amylase 112.5 and lipase 130.2. Hemoglobin A1C 6.32. CT of the abdomen and pelvis showed focal inflammatory change along the posterior aspect of the distal descending colon. Appearance suggestive of acute uncomplicated diverticulitis and there is questionable mucosal thickening of the distal stomach or proximal duodenum. Gastritis/duodenitis is not excluded. The patient has no tenderness to the abdomen on exam. The chest x-ray showed no focal pulmonary consolidation. An echocardiogram was completed during this hospital stay. It showed borderline left atrial cavity size, normal wall motion, normal pericardium, borderline left ventricular hypertrophy with borderline left atrial cavity, normal left ventricular contractility and normal valves. The ejection fraction was recorded at 55%. ASSESSMENT/PLAN: 1. Peptic ulcer disease. 2. Epigastric abdominal pain, resolving. 3. Chest pain with negative cardiac markers of CK-MB and troponin while inpatient and 2D echo has been discussed and cardiac workup has been completed by Dr. Grider while the patient was inpatient and plans for outpatient stress testing. 4. History of coronary artery disease with coronary artery stent. 5. Anxiety. The patient, while in the hospital, was given IV Protonix, also given looks like a GI cocktail and some IV fluids. Also given IV Levaquin for suspected diverticulitis however the patient is asymptomatic with any signs or symptoms of diverticulitis and that was discontinued by Dr. Gordillo. Due to the patient feeling much better and the cardiac markers being negative and the cardiac workup thus far being negative, Dr. Grider and Dr. Gordillo felt like it was okay for the patient to be discharged home on Protonix pill form and the patient was agreeable to do this with close followup with the patient's primary care provider, Thalia Nicolas, in the office on Monday. The patient understands the importance of not taking any Ibuprofen pr Aleve or any strong doses of Aspirin. He will only take Baby Aspirin. The prescription for the Protonix will be sent to [email or web address]
== END 2018-11-14 15:53 | disposition home or self-care (01) ==
LOC: ED 01:28 → MEDSURG B 04:26
PROVIDERS: ADMIT General Practice; ATTEND General Practice
DX: R10.13 Epigastric pain (principal); K57.92 Diverticulitis of intestine, part unspecified, without perforation or abscess without bleeding; I25.2 Old myocardial infarction; I25.10 Atherosclerotic heart disease of native coronary artery without angina pectoris; R11.0 Nausea; F41.9 Anxiety disorder, unspecified; R07.89 Other chest pain; K27.9 Peptic ulcer, site unspecified, unspecified as acute or chronic, without hemorrhage or perforation; I10 Essential (primary) hypertension
CPT/HCPCS: 36415; 80053; 80061; 82150; 82550; 82553; 83036; 83690; 83880; 84484; 85025; 93005; 93010; 96361; 96365; 96366; 96372; 96375; 96376; 99284

== ENCOUNTER 2018-11-29 06:24 | Outpatient (CLI) ==
[2018-11-29] MEDS: DOBUTAMINE 500 MG-D5W 250 ML 250 ML IV ONE (08:15)
[2018-11-29] MEDS: DOBUTAMINE 500 MG-D5W 250 ML 500 MG in PREMIX 250 ML D5W 1 BAG IV SCH (08:15)
[2018-11-29] MEDS: ATROPINE SULFATE PFS ONE (08:33)
[2018-11-29] MEDS: ATROPINE SULFATE PFS IVP STA (08:33)
--- NOTE | 2018-11-30 08:23 | ECHOSTRESS ---
Date of Exam: 11/29/18 Ordering Physician: DR. ISAIAH MCKEON Reason for Echo: SOA WITH EXERCISE, EPIGASTRIC PAIN, DOBUTAMINE STRESS TEST-- INCONCLUSIVE M-Mode Normal Adult Results LV Dimensions Normal Adult Results AoV Opening excursions >1.6 LVEDD-base- 3.5-5.8 Ao root dimensions 2.0-3.7 LVESD-base- 3.1-4.6 L. Atrium dimensions 1.9-3.8 Post. Wall thickness 0.8-1.1 IV septum (thickness) 0.7-1.2 Post. Wall excursion 0.72-1.3 Septal motion Systolic motion R. Ventricular cavity 1.5-2.0 LVEF 60% Paradoxical septal wall motion 2-D: NORMAL LEFT VENTRICULAR CONTRACTILITY--RESTING AND WITH DOBUTAMINE INFUSION M-MODE: MV: AV: TV: PV: CHAMBER SIZE: WALL MOTION: NORMAL LEFT VENTRICULAR CONTRACTILITY--RESTING AND WITH DOBUTAMINE INFUSION PERICARDIUM: INTERPRETATION: 1. NORMAL LEFT VENTRICULAR CONTRACTILITY--RESTING AND WITH DOBUTAMINE INFUSION MTDD
--- NOTE | 2018-11-30 08:38 | DOBSTECHO ---
Date of Test: 11/29/18 Ordering Physician: DR. ISAIAH MCKEON Occupation: DISABLED Smoking History: NONE Reason for Examination: SOA WITH EXERTION, EPIGASTRIC PAIN Current Medications: XANAX, ASA, PLAVIX, NEURONTIN, NORCO, COZAAR, METOPROLOL, NITRO Height: 74" Weight: 205 LBS Target Heart Rate: 134/158 S-T Segment Stage Time HR BPM BP MMHG Rhythm +/- Elevation Depression Symptoms Control Sitting 68 108/80 SR X NONE Dobutamine 250mg/D5W 5cmg/KG/mn 10cmg/KG/mn 3:00 71 112/80 SR X NONE 15cmg/KG/mn 2:00 76 118/78 SR X NONE 20cmg/KG/mn 2:00 81 118/76 SR X NONE 25cmg/KG/mn 2:00 82 130/68 SR X NONE 30cmg/KG/mn 2:00 83 122/60 SR X NONE 35cmg/KG/mn 2:00 86 112/60 SR X NONE 40cmg/KG/mn 1:04 93 SR X NONE 4 MIN POST INFUSION z 88 118/80 SR X NONE 9 MIN POST INFUSION z 72 SR X NONE DURATION OF INFUSION 14:04 MAXIMUM HEART RATE REACHED 93 BPM 98% OXYGEN SATURATION ON ROOM AIR WITH DOBUTAMINE INFUSION Interpretation: 98% OXYGEN SATURATION ON ROOM AIR WITH DOBUTAMINE INFUSION 40 MCG/KG/MN 1. INCONCLUSIVE FOR ISCHEMIC S-T WAVE CHANGES PATIENT DID NOT REACH TARGET HEART RATE 2. NO ISCHEMIC ST-T WAVE CHANGES FROM HEART RATE 68 BPM AT REST TO 93 BPM WITH DOBUTAMINE INFUSION AT 40 MCG/KG/MN 3. NO CHEST PAIN OR DISCOMFORT NORMAL LEFT VENTRICULAR CONTRACTILITY--RESTING AND WITH DOBUTAMINE INFUSION REPORTED NO CHEST PAIN AFTER HIS DISCHARGE FROM THE HOSPITAL, ON ANTI REFLUX MEDICINE/ PEPTIC ULCER DISEASE MTDD
== END 2018-11-29 06:25 | disposition home or self-care (01) ==
LOC: CAR 06:24
PROVIDERS: ATTEND Internal Medicine
DX: R06.02 Shortness of breath (principal); R10.13 Epigastric pain